=== PATIENT | male | born 1935 | race Caucasian/White ===

== ENCOUNTER 2019-04-28 17:57 | Inpatient (IN) ==
[2019-04-28] MEDS ORDERED: 0.9 % Sodium Chloride 1,000 ML IVC ONE (18:29)
[2019-04-28 18:56] LABS: Bilirubin,Urine Negative (Negative); Blood,Urine Trace (Negative); Clarity,Urine Turbid (Clear); Color,Urine Yellow (Yellow); Glucose,Urine (UA) 100 mg/dL (Normal); Ketones,Urine Negative (Negative); Leukocyte Esterase,Urine Large (Negative); Nitrite,Urine Negative (Negative); Protein,Urine >=300 mg/dL (Neg-Trace); Specific Gravity,Urine 1.015 (1.010-1.025); Urobilinogen,Urine Normal (Normal)
[2019-04-28 18:57] LABS: Basophils # 0.1 K/mcL (0.0-0.2); Basophils % 0.9 %; Eosinophils # 0.2 K/mcL (0.0-0.6); Eosinophils % 2.5 %; Hematocrit 34.2 % (37.5-50.1); Hemoglobin 10.4 g/dL (12.9-16.9); Immature Granulocytes % 0.7 % (0-4); Lymphocytes # 1.1 K/mcL (0.6-4.6); Lymphocytes % 13.8 %; Mean Corpuscular HGB Conc 30.4 g/dL (31.6-35.5); Mean Corpuscular Hemoglobin 23.6 pg (28.0-33.3); Mean Corpuscular Volume 77.6 fL (83.0-100.0); Mean Platelet Volume 9.3 fL (9.4-12.4); Monocytes # 0.7 K/mcL (0.0-1.3); Monocytes % 8.1 %; Platelet Count 409 K/mcL (140-400); Red Blood Count 4.41 M/mcL (4.19-5.50); Red Cell Distribution Width 20.1 % (11.5-14.5); White Blood Count 8.1 K/mcL (4.3-11.1)
[2019-04-28 18:58] LABS: Bacteria,Urine Few per hpf (None-Few); Squamous Epithelial Cell,Urine Many per lpf (None-Few); WBC,Urine TNTC per hpf (0-3)
[2019-04-28 19:06] LABS: Amphetamine Screen,Urine Negative ng/mL (Cutoff=1000); Barbiturate Screen,Urine Negative ng/mL (Cutoff=200); Benzodiazepines Screen,Urine Negative ng/mL (Cutoff=200); Cannabinoid Screen,Urine Negative ng/mL (Cutoff = 50); Cocaine Screen,Urine Negative ng/mL (Cutoff= 300); Opiate Screen,Urine Negative ng/mL (Cutoff=300); Phencyclidine Screen,Urine Negative ng/mL (Cutoff=25)
[2019-04-28 19:16] LABS: INR 6.5; Prothrombin Time 74.2 Seconds (9.4-12.1); Troponin I 0.04 ng/mL (< 0.04)
[2019-04-28 19:27] LABS: Alanine Aminotransferase 17 Units/L (7-52); Albumin 2.6 g/dL (3.5-5.7); Albumin/Globulin Ratio 0.8 (1.1-2.2); Alkaline Phosphatase 121 Units/L (34-104); Aspartate Amino Transferase 26 Units/L (13-39); BUN/Creatinine Ratio 19 (6-26); Bilirubin,Direct 0.1 mg/dL (0.0-0.2); Bilirubin,Indirect 0.3 mg/dL (0.0-1.0); Bilirubin,Total 0.4 mg/dL (0.3-1.0); Blood Urea Nitrogen 31 mg/dL (8-23); Carbon Dioxide 23 mEq/L (23-29); Chloride 105 mEq/L (98-107); Creatine Kinase 116 Units/L (30-223); Ethanol < 10 mg/dL (Less than 10); Globulin 3.3 g/dL (2.4-3.5); Glucose 195 mg/dL (70-105); Osmolality,Calculated 300 (280-300); Potassium 3.6 mEq/L (3.5-5.1); Sodium 139 mEq/L (136-145); Thyroid Stimulating Hormone 4.205 mcIU/mL (0.340-5.600); Total Protein 5.9 g/dL (6.4-8.9); eGFR For African Americans 51 (> 60); eGFR For Non-African Americans 42 (> 60)
[2019-04-28] MEDS ORDERED: cefTRIAXone 1,000 MG in 0.9 % Sodium Chloride Mini Bag 100 ML IVPB ONE (21:21)
[2019-04-28] MEDS ORDERED: Water for inj. (sterile) 10 ML ONE (21:34)
[2019-04-29] MEDS ORDERED: Naloxone 0.4 MG/ML INJ IVP PRN (00:57)
[2019-04-29 02:48] LABS: Basophils # 0.1 K/mcL (0.0-0.2); Basophils % 0.7 %; Eosinophils # 0.2 K/mcL (0.0-0.6); Eosinophils % 2.4 %; Hematocrit 33.1 % (37.5-50.1); Hemoglobin 9.9 g/dL (12.9-16.9); Immature Granulocytes % 0.6 % (0-4); Lymphocytes # 1.5 K/mcL (0.6-4.6); Lymphocytes % 17.7 %; Mean Corpuscular HGB Conc 29.9 g/dL (31.6-35.5); Mean Corpuscular Hemoglobin 23.5 pg (28.0-33.3); Mean Corpuscular Volume 78.6 fL (83.0-100.0); Mean Platelet Volume 9.6 fL (9.4-12.4); Monocytes # 0.6 K/mcL (0.0-1.3); Monocytes % 7.5 %; Platelet Count 386 K/mcL (140-400); Red Blood Count 4.21 M/mcL (4.19-5.50); Red Cell Distribution Width 20.5 % (11.5-14.5); Segmented Neutrophils % 71.1 %; White Blood Count 8.4 K/mcL (4.3-11.1)
[2019-04-29 02:50] LABS: Immature Reticulocyte % 21.2 % (11.0-38.0); Retculocyte # 0.09 M/mcL (0.05-0.10); Reticulocyte % 2.3 % (1.6-2.8)
[2019-04-29 02:54] LABS: INR 6.6; Prothrombin Time 75.5 Seconds (9.4-12.1)
[2019-04-29 03:09] LABS: % Iron Saturation 15 % (20-55); Albumin 2.5 g/dL (3.5-5.7); Albumin/Globulin Ratio 0.8 (1.1-2.2); Bilirubin,Total 0.3 mg/dL (0.3-1.0); Calcium 8.1 mg/dL (8.6-10.3); Globulin 3.3 g/dL (2.4-3.5); Iron 21 mcg/dL (65-175); Magnesium 1.7 mg/dL (1.6-2.6); Phosphorous 3.1 mg/dL (2.7-4.5); Potassium 3.3 mEq/L (3.5-5.1); Total Protein 5.8 g/dL (6.4-8.9); Transferrin 103 mg/dL (203-362)
[2019-04-29 03:27] LABS: Ferritin 362 ng/mL (20-250)
[2019-04-29 03:33] LABS: Folate 14.9 ng/mL (3.0-16.0)
[2019-04-29] MEDS: hydrALAZINE 25 MG TABLET PO SCH ×3 (10:23→20:45)
[2019-04-29] MEDS: cefTRIAXone 1,000 MG in Water for inj. (sterile) 10 ML IVP SCH (10:23)
[2019-04-29] MEDS ORDERED: Dextrose Gel 15 GM/37.5 ML TUBE PO PRN ×2 (10:24)
[2019-04-29] MEDS ORDERED: D5% in Water 1,000 ML IVC PRN (10:24)
[2019-04-29] MEDS: Isosorbide MONOnitrate (24 HR) 60 MG TAB.ER.24H PO SCH (10:24)
[2019-04-29] MEDS ORDERED: *HR* Dextrose 50 % in Water (Syg) 50 ML SYRINGE IVP PRN (10:24)
[2019-04-29 10:53] LABS: Bilirubin,Urine Negative (Negative); Blood,Urine Trace (Negative); Clarity,Urine Cloudy (Clear); Color,Urine Yellow (Yellow); Glucose,Urine (UA) Normal (Normal); Ketones,Urine Negative (Negative); Leukocyte Esterase,Urine Moderate (Negative); Nitrite,Urine Negative (Negative); PH,Urine 6.5 pH Units (5.0-8.0); Protein,Urine >=300 mg/dL (Neg-Trace); Specific Gravity,Urine 1.016 (1.010-1.025); Urobilinogen,Urine Normal (Normal)
[2019-04-29 10:55] LABS: Bacteria,Urine None Seen per hpf (None-Few); Hyaline Casts,Urine None Seen per lpf (None-Few); Squamous Epithelial Cell,Urine Many per lpf (None-Few); WBC,Urine TNTC per hpf (0-3)
[2019-04-29 11:11] LABS: RBC,Urine 0-3 per hpf (0-3)
[2019-04-29 11:16] LABS: Protein/Creatinine Ratio,Urine 7.78 mg/mg (0.00-0.20)
[2019-04-29] MEDS: Insulin LISPRO 300 UNITS/3 ML VIAL SQ SCH ×3 (11:58→20:40)
[2019-04-29] MEDS: Ringers Solution, Lactated 1,000 ML IVC SCH ×2 (12:10→20:46)
[2019-04-30 08:09] LABS: Estimated Average Glucose 194 mg/dl
[2019-04-30] MEDS: Insulin LISPRO 300 UNITS/3 ML VIAL SQ SCH ×4 (09:28→20:49)
[2019-04-30] MEDS: Isosorbide MONOnitrate (24 HR) 60 MG TAB.ER.24H PO SCH (09:29)
[2019-04-30] MEDS: hydrALAZINE 25 MG TABLET PO SCH ×3 (09:29→19:47)
[2019-04-30] MEDS: Ringers Solution, Lactated 1,000 ML IVC SCH (09:30)
[2019-04-30] MEDS: cefTRIAXone 1,000 MG in Water for inj. (sterile) 10 ML IVP SCH (09:30)
[2019-04-30 10:49] LABS: INR 8.2; Prothrombin Time 93.6 Seconds (9.4-12.1)
[2019-04-30 11:01] LABS: Calcium 8.4 mg/dL (8.6-10.3); Potassium 4.2 mEq/L (3.5-5.1)
[2019-04-30 16:53] LABS: Bilirubin,Urine Small (Negative); Blood,Urine Negative (Negative); Clarity,Urine Cloudy (Clear); Color,Urine Dark Yellow (Yellow); Glucose,Urine (UA) 100 mg/dL (Normal); Ketones,Urine Negative (Negative); Leukocyte Esterase,Urine Trace (Negative); Nitrite,Urine Negative (Negative); Protein,Urine >=300 mg/dL (Neg-Trace); Specific Gravity,Urine 1.021 (1.010-1.025); Urobilinogen,Urine Normal (Normal)
[2019-04-30 17:07] LABS: Squamous Epithelial Cell,Urine Few per lpf (None-Few)
[2019-04-30 17:08] LABS: Granular Casts,Urine Few per lpf (None Seen); RBC,Urine 0-3 per hpf (0-3)
[2019-04-30 17:09] LABS: Bacteria,Urine Few per hpf (None-Few)
[2019-04-30] MEDS: Ipratropium/Albuterol Neb 3 ML IH PRN (20:12)
[2019-05-01 04:51] LABS: Basophils # 0.1 K/mcL (0.0-0.2); Basophils % 0.7 %; Eosinophils # 0.1 K/mcL (0.0-0.6); Eosinophils % 1.1 %; Hematocrit 35.2 % (37.5-50.1); Hemoglobin 10.9 g/dL (12.9-16.9); Immature Granulocytes % 0.7 % (0-4); Lymphocytes # 1.1 K/mcL (0.6-4.6); Lymphocytes % 11.8 %; Mean Corpuscular Hemoglobin 23.5 pg (28.0-33.3); Mean Platelet Volume 9.1 fL (9.4-12.4); Monocytes # 0.5 K/mcL (0.0-1.3); Monocytes % 5.2 %; Neutrophils # 7.7 K/mcL (1.6-8.9); Platelet Count 353 K/mcL (140-400); Red Blood Count 4.63 M/mcL (4.19-5.50); Red Cell Distribution Width 20.7 % (11.5-14.5); Segmented Neutrophils % 80.5 %; White Blood Count 9.6 K/mcL (4.3-11.1)
[2019-05-01 04:56] LABS: INR 7.1; Prothrombin Time 81.1 Seconds (9.4-12.1)
[2019-05-01 05:03] LABS: Calcium 8.6 mg/dL (8.6-10.3); Potassium 3.7 mEq/L (3.5-5.1)
[2019-05-01] MEDS: Insulin LISPRO 300 UNITS/3 ML VIAL SQ SCH ×4 (07:42→21:11)
[2019-05-01] MEDS: Ipratropium/Albuterol Neb 3 ML IH PRN (07:59)
[2019-05-01] MEDS: amLODIPine 5 MG TABLET PO SCH (08:23)
[2019-05-01] MEDS: hydrALAZINE 25 MG TABLET PO SCH ×3 (08:23→21:12)
[2019-05-01] MEDS: Isosorbide MONOnitrate (24 HR) 60 MG TAB.ER.24H PO SCH (08:23)
[2019-05-01] MEDS ORDERED: *HR* Metoprolol 5 MG/5 ML VIAL IVP ONE (23:48)
[2019-05-02 04:41] LABS: INR 4.4; Prothrombin Time 49.9 Seconds (9.4-12.1)
[2019-05-02] MEDS: Isosorbide MONOnitrate (24 HR) 60 MG TAB.ER.24H PO SCH (09:52)
[2019-05-02] MEDS: amLODIPine 5 MG TABLET PO SCH (09:52)
[2019-05-02] MEDS: hydrALAZINE 25 MG TABLET PO SCH ×3 (09:54→21:17)
[2019-05-02] MEDS: Insulin LISPRO 300 UNITS/3 ML VIAL SQ SCH ×4 (09:54→21:16)
[2019-05-03 08:51] LABS: INR 2.2; Prothrombin Time 24.7 Seconds (9.4-12.1)
[2019-05-03] MEDS ORDERED: hydrALAZINE 25 MG TABLET PO SCH (09:00)
[2019-05-03] MEDS: Isosorbide MONOnitrate (24 HR) 60 MG TAB.ER.24H PO SCH (09:23)
[2019-05-03] MEDS: amLODIPine 5 MG TABLET PO SCH (09:23)
[2019-05-03] MEDS: Insulin LISPRO 300 UNITS/3 ML VIAL SQ SCH ×2 (09:24→12:26)
[2019-05-03 11:32] VITALS: BP 124/72
[2019-05-03] MEDS ORDERED: Nitrofurantoin (BID) 100 MG CAPSULE PO SCH (17:00)
[2019-05-03] MEDS ORDERED: Warfarin perPT PO PRN (18:00)
[2019-05-03] MEDS ORDERED: *HR* Warfarin 2 MG TABLET PO ONE (18:00)
== END 2019-05-03 17:30 | DRG 312 ==
LOC: 3ANU 17:57 → EMEROOARM 17:57 → SUATTDRO 22:43 → 3ANU 23:06 → SUATTDRO 04-30 15:57
PROVIDERS: ADMIT Family Medicine; ATTEND Student in an Organized Health Care Education/Training Program

== ENCOUNTER 2020-05-12 12:49 | Observation (INO) ==
[2020-05-12] MEDS ORDERED: Isovue-370 500 ML BOTTLE IVP ONE (13:35)
[2020-05-12 14:12] LABS: Basophils # 0.1 K/mcL (0.0-0.2); Eosinophils # 0.2 K/mcL (0.0-0.6); Eosinophils % 2.6 %; Hematocrit 35.9 % (37.5-50.1); Hemoglobin 11.8 g/dL (12.9-16.9); Immature Granulocytes % 0.7 % (0-4); Lymphocytes # 1.5 K/mcL (0.6-4.6); Lymphocytes % 17.5 %; Mean Corpuscular HGB Conc 32.9 g/dL (31.6-35.5); Mean Corpuscular Hemoglobin 28.9 pg (28.0-33.3); Mean Corpuscular Volume 87.8 fL (83.0-100.0); Monocytes # 0.7 K/mcL (0.0-1.3); Neutrophils # 5.9 K/mcL (1.6-8.9); Platelet Count 239 K/mcL (140-400); Red Blood Count 4.09 M/mcL (4.19-5.50); Red Cell Distribution Width 16.9 % (11.5-14.5); Segmented Neutrophils % 70.2 %; White Blood Count 8.4 K/mcL (4.3-11.1)
[2020-05-12 14:16] LABS: INR 4.1
[2020-05-12 14:19] LABS: Activated Partial Thrombo Time 47.1 Seconds (26.0-36.0)
[2020-05-12 14:42] LABS: Albumin 3.1 g/dL (3.5-5.7); Albumin/Globulin Ratio 1.3 (1.1-2.2); Bilirubin,Indirect 0.3 mg/dL (0.0-1.0); Bilirubin,Total 0.3 mg/dL (0.3-1.0); Globulin 2.4 g/dL (2.4-3.5); Potassium 3.8 mEq/L (3.5-5.1); Total Protein 5.5 g/dL (6.4-8.9); Troponin I 0.05 ng/mL (< 0.04)
[2020-05-12 14:46] LABS: Bacteria,Urine Few per hpf (None-Few); Bilirubin,Urine Negative (Negative); Blood,Urine Small (Negative); Clarity,Urine Turbid (Clear); Color,Urine Light-Yellow (Yellow); Glucose,Urine (UA) 200 mg/dL (Normal); Ketones,Urine Negative (Negative); Leukocyte Esterase,Urine Moderate (Negative); Mucus,Urine Few per lpf (None-Few); Nitrite,Urine Negative (Negative); Protein,Urine >=300 mg/dL (Neg-Trace); Specific Gravity,Urine 1.016 (1.010-1.025); Squamous Epithelial Cell,Urine Few per hpf (None-Few); Urobilinogen,Urine Normal (Normal); WBC,Urine TNTC per hpf (0-3)
[2020-05-12 14:48] LABS: Amphetamine Screen,Urine Negative ng/mL (Cutoff=1000); Barbiturate Screen,Urine Negative ng/mL (Cutoff=200); Benzodiazepines Screen,Urine Negative ng/mL (Cutoff=200); Cannabinoid Screen,Urine Negative ng/mL (Cutoff = 50); Cocaine Screen,Urine Negative ng/mL (Cutoff= 300); Opiate Screen,Urine Negative ng/mL (Cutoff=300); Phencyclidine Screen,Urine Negative ng/mL (Cutoff=25)
[2020-05-12] MEDS ORDERED: *HR* LORazepam 2 MG/ML VIAL IVP ONE (16:43)
[2020-05-12 17:11] LABS: Adenovirus Not Detected (Not Detect); Bordetella Pertussis Not Detected (Not Detect); Chlamydophila pneumoniae Not Detected (Not Detect); Coronavirus 229E Not Detected (Not Detect); Coronavirus HKU1 Not Detected (Not Detect); Coronavirus NL63 Not Detected (Not Detect); Coronavirus OC43 Not Detected (Not Detect); Human Metapneumovirus Not Detected (Not Detect); Human Rhinovirus/Enterovirus Not Detected (Not Detect); Influenza A Subtype 2009 H1 Not Detected (Not Detect); Influenza B Not Detected (Not Detect); Mycoplasma pneumoniae Not Detected (Not Detect); Parainfluenza Virus 1 Not Detected (Not Detect); Parainfluenza Virus 2 Not Detected (Not Detect); Parainfluenza Virus 3 Not Detected (Not Detect); Parainfluenza Virus 4 Not Detected (Not Detect); Respiratory Syncytial Virus Not Detected (Not Detect); SARS-CoV-2 Not Detected (Not Detect)
[2020-05-12] MEDS ORDERED: Acetaminophen 325 MG TABLET PO PRN (17:54)
[2020-05-12] MEDS ORDERED: Naloxone 0.4 MG/ML INJ IVP PRN (17:54)
[2020-05-12] MEDS ORDERED: Melatonin 3 MG TABLET PO PRN (18:06)
[2020-05-12] MEDS ORDERED: *HR* Dextrose 50 % in Water (Vial) 50 ML VIAL IVP PRN (18:10)
[2020-05-12] MEDS ORDERED: D5% in Water 1,000 ML IVC PRN (18:10)
[2020-05-12] MEDS ORDERED: Dextrose Gel 15 GM/37.5 ML TUBE PO PRN ×2 (18:10)
[2020-05-12] MEDS: *HR* LORazepam 1 MG TABLET PO SCH (21:21)
[2020-05-12] MEDS: 0.9 % Sodium Chloride 1,000 ML IVC SCH (21:22)
[2020-05-12] MEDS: Insulin DETEMIR 100 UNIT/ML X5UNITS SQ SCH (21:49)
[2020-05-13 00:47] LABS: Basophils # 0.1 K/mcL (0.0-0.2); Basophils % 0.7 %; Eosinophils # 0.3 K/mcL (0.0-0.6); Eosinophils % 2.7 %; Hematocrit 36.5 % (37.5-50.1); Hemoglobin 11.5 g/dL (12.9-16.9); Immature Granulocytes % 0.5 % (0-4); Lymphocytes # 1.8 K/mcL (0.6-4.6); Lymphocytes % 18.6 %; Mean Corpuscular HGB Conc 31.5 g/dL (31.6-35.5); Mean Corpuscular Hemoglobin 27.9 pg (28.0-33.3); Mean Corpuscular Volume 88.6 fL (83.0-100.0); Mean Platelet Volume 10.5 fL (9.4-12.4); Monocytes # 0.7 K/mcL (0.0-1.3); Monocytes % 7.3 %; Neutrophils # 6.8 K/mcL (1.6-8.9); Platelet Count 183 K/mcL (140-400); Red Blood Count 4.12 M/mcL (4.19-5.50); Red Cell Distribution Width 16.6 % (11.5-14.5); Segmented Neutrophils % 70.2 %; White Blood Count 9.6 K/mcL (4.3-11.1)
[2020-05-13 01:06] LABS: Calcium 7.9 mg/dL (8.6-10.3); Potassium 3.5 mEq/L (3.5-5.1)
[2020-05-13 01:13] LABS: INR 3.5; Prothrombin Time 38.9 Seconds (9.4-12.1)
[2020-05-13] MEDS: Insulin LISPRO 300 UNITS/3 ML VIAL SQ SCH ×3 (07:44→17:36)
[2020-05-13] MEDS: Finasteride 5 MG TABLET PO SCH (07:47)
[2020-05-13] MEDS: Isosorbide MONOnitrate (24 HR) 60 MG TAB.ER.24H PO SCH (07:47)
[2020-05-13] MEDS: Metoprolol XL (24 HR) Succ 25 MG TAB.ER.24H PO SCH (07:47)
[2020-05-13] MEDS: allopurinoL 100 MG TABLET PO SCH (07:48)
[2020-05-13] MEDS: amLODIPine 5 MG TABLET PO SCH (07:48)
[2020-05-13] MEDS ORDERED: Ondansetron 4 MG/2 ML VIAL IVP ONE (08:02)
[2020-05-13] MEDS ORDERED: *HR* Glimepiride 4 MG TABLET PO SCH (09:00)
[2020-05-13] MEDS: 0.9 % Sodium Chloride 1,000 ML IVC SCH (11:31)
[2020-05-13] MEDS ORDERED: *HR* LORazepam 0.5 MG TABLET PO PRN (16:22)
[2020-05-13] MEDS ORDERED: Warfarin perPT PO PRN (18:00)
[2020-05-13] MEDS: hydrALAZINE 25 MG TABLET PO SCH (20:05)
[2020-05-13] MEDS: *HR* LORazepam 1 MG TABLET PO SCH (20:05)
[2020-05-13] MEDS: Insulin DETEMIR 100 UNIT/ML X5UNITS SQ SCH (22:51)
[2020-05-13] MEDS: Ketorolac OPTH Soln 5 ML BOTTLE RIGHT EYE SCH (23:57)
[2020-05-14] MEDS: Gatifloxacin OPTH Drops 2.5 mL BOTTLE RIGHT EYE SCH ×2 (00:15→09:02)
[2020-05-14 06:34] LABS: INR 2.3; Prothrombin Time 26.5 Seconds (9.4-12.1)
[2020-05-14] MEDS: hydrALAZINE 25 MG TABLET PO SCH (08:59)
[2020-05-14] MEDS: amLODIPine 5 MG TABLET PO SCH (08:59)
[2020-05-14] MEDS: Isosorbide MONOnitrate (24 HR) 60 MG TAB.ER.24H PO SCH (09:00)
[2020-05-14] MEDS ORDERED: *HR* LORazepam 0.5 MG TABLET PO SCH (09:00)
[2020-05-14] MEDS ORDERED: polyethylene glycoL 3350 17 GM POWD.PACK PO SCH (09:00)
[2020-05-14] MEDS: Finasteride 5 MG TABLET PO SCH (09:00)
[2020-05-14] MEDS: Metoprolol XL (24 HR) Succ 25 MG TAB.ER.24H PO SCH (09:00)
[2020-05-14] MEDS ORDERED: Furosemide 40 MG TABLET PO SCH (09:00)
[2020-05-14] MEDS: allopurinoL 100 MG TABLET PO SCH (09:00)
[2020-05-14] MEDS: Insulin LISPRO 300 UNITS/3 ML VIAL SQ SCH (09:01)
[2020-05-14] MEDS: Ketorolac OPTH Soln 5 ML BOTTLE RIGHT EYE SCH (09:01)
[2020-05-14 11:32] VITALS: BP 147/77
[2020-05-14 11:41] LABS: Adenovirus Not Detected (Not Detect); Coronavirus 229E Not Detected (Not Detect); Coronavirus HKU1 Not Detected (Not Detect); Coronavirus NL63 Not Detected (Not Detect); Coronavirus OC43 Not Detected (Not Detect); Human Metapneumovirus Not Detected (Not Detect); Human Rhinovirus/Enterovirus Not Detected (Not Detect); Influenza A Subtype 2009 H1 Not Detected (Not Detect); Influenza B Not Detected (Not Detect); Parainfluenza Virus 1 Not Detected (Not Detect); Parainfluenza Virus 2 Not Detected (Not Detect); SARS-CoV-2 Not Detected (Not Detect)
[2020-05-14 11:42] LABS: Bordetella Pertussis Not Detected (Not Detect); Chlamydophila pneumoniae Not Detected (Not Detect); Mycoplasma pneumoniae Not Detected (Not Detect); Parainfluenza Virus 3 Not Detected (Not Detect); Parainfluenza Virus 4 Not Detected (Not Detect); Respiratory Syncytial Virus Not Detected (Not Detect)
[2020-05-14] MEDS ORDERED: *HR* Warfarin 2.5 MG TABLET PO ONE (18:00)
== END 2020-05-14 12:42 ==
LOC: EMEROOARM 12:49 → 2ANU 12:49 → SUATTDRO 17:29 → 2ANU 18:27
PROVIDERS: ADMIT Internal Medicine; ATTEND Internal Medicine

== ENCOUNTER 2020-05-16 20:23 | Inpatient (IN) ==
[2020-05-16] MEDS ORDERED: *HR* LORazepam 2 MG/ML VIAL IM ONE (20:39)
[2020-05-16 21:07] LABS: Amphetamine Screen,Urine Negative ng/mL (Cutoff=1000); Bacteria,Urine Few per hpf (None-Few); Barbiturate Screen,Urine Negative ng/mL (Cutoff=200); Benzodiazepines Screen,Urine Negative ng/mL (Cutoff=200); Bilirubin,Urine Negative (Negative); Blood,Urine Moderate (Negative); Cannabinoid Screen,Urine Negative ng/mL (Cutoff = 50); Clarity,Urine Clear (Clear); Cocaine Screen,Urine Negative ng/mL (Cutoff= 300); Color,Urine Light-Yellow (Yellow); Glucose,Urine (UA) 200 mg/dL (Normal); Ketones,Urine Negative (Negative); Leukocyte Esterase,Urine Negative (Negative); Mucus,Urine Few per lpf (None-Few); Nitrite,Urine Negative (Negative); Opiate Screen,Urine Negative ng/mL (Cutoff=300); PH,Urine 6.5 pH Units (5.0-8.0); Phencyclidine Screen,Urine Negative ng/mL (Cutoff=25); Protein,Urine >=600 mg/dL (Neg-Trace); RBC,Urine 0-3 per hpf (0-3); Specific Gravity,Urine 1.016 (1.010-1.025); Squamous Epithelial Cell,Urine Few per hpf (None-Few); Urobilinogen,Urine Normal (Normal); WBC,Urine 15-30 per hpf (0-3)
[2020-05-16 21:39] LABS: Basophils # 0.1 K/mcL (0.0-0.2); Basophils % 0.6 %; Eosinophils # 0.3 K/mcL (0.0-0.6); Eosinophils % 2.8 %; Hematocrit 39.4 % (37.5-50.1); Hemoglobin 12.2 g/dL (12.9-16.9); Immature Granulocytes % 0.5 % (0-4); Lymphocytes # 1.6 K/mcL (0.6-4.6); Lymphocytes % 14.1 %; Mean Corpuscular Hemoglobin 27.7 pg (28.0-33.3); Mean Corpuscular Volume 89.5 fL (83.0-100.0); Mean Platelet Volume 10.3 fL (9.4-12.4); Monocytes # 1.1 K/mcL (0.0-1.3); Monocytes % 9.5 %; Neutrophils # 8.4 K/mcL (1.6-8.9); Platelet Count 202 K/mcL (140-400); Red Cell Distribution Width 16.5 % (11.5-14.5); Segmented Neutrophils % 72.5 %; White Blood Count 11.6 K/mcL (4.3-11.1)
[2020-05-16 21:58] LABS: Acetaminophen < 10 mcg/mL (10-20); BUN/Creatinine Ratio 14 (6-26); Blood Urea Nitrogen 41 mg/dL (8-23); Calcium 8.3 mg/dL (8.6-10.3); Carbon Dioxide 26 mEq/L (23-29); Chloride 109 mEq/L (98-107); Ethanol < 10 mg/dL (Less than 10); Glucose 104 mg/dL (70-105); Osmolality,Calculated 306 (280-300); Potassium 3.7 mEq/L (3.5-5.1); Salicylate < 2.5 mg/dL (15.0-30.0); Sodium 143 mEq/L (136-145); eGFR For African Americans 25 (> 60); eGFR For Non-African Americans 20 (> 60)
[2020-05-16] MEDS ORDERED: levoFLOXacin 750 MG/150 ML 750 MG/150 ML BAG IVPB SCH (23:15)
[2020-05-16 23:21] LABS: Alanine Aminotransferase 19 Units/L (7-52); Albumin 3.3 g/dL (3.5-5.7); Albumin/Globulin Ratio 1.3 (1.1-2.2); Alkaline Phosphatase 129 Units/L (34-104); Aspartate Amino Transferase 31 Units/L (13-39); Bilirubin,Direct 0.1 mg/dL (0.0-0.2); Bilirubin,Indirect 0.3 mg/dL (0.0-1.0); Bilirubin,Total 0.4 mg/dL (0.3-1.0); Globulin 2.5 g/dL (2.4-3.5); Total Protein 5.8 g/dL (6.4-8.9)
[2020-05-16] MEDS ORDERED: 0.9 % Sodium Chloride 1,000 ML IVC ONE (23:23)
[2020-05-16] MEDS ORDERED: *HR* Labetalol 20 MG/4 ML SYRINGE IVP ONE (23:25)
[2020-05-16] MEDS ORDERED: *HR* LORazepam 2 MG/ML VIAL ONE (23:30)
[2020-05-16] MEDS ORDERED: *HR* LORazepam 2 MG/ML VIAL IVP ONE (23:32)
[2020-05-17] MEDS ORDERED: Melatonin 3 MG TABLET PO PRN (00:57)
[2020-05-17] MEDS ORDERED: *HR* LORazepam 0.5 MG TABLET PO PRN (00:57)
[2020-05-17] MEDS ORDERED: D5% in Water 1,000 ML IVC PRN (01:00)
[2020-05-17] MEDS ORDERED: Dextrose Gel 15 GM/37.5 ML TUBE PO PRN ×2 (01:00)
[2020-05-17 01:41] LABS: Creatine Kinase 508 Units/L (30-223)
[2020-05-17] MEDS ORDERED: Ondansetron 4 MG/2 ML VIAL IVP PRN (04:01)
[2020-05-17] MEDS ORDERED: Albuterol 2.5 MG/3 ML NEBULIZER IH ONE (04:54)
[2020-05-17] MEDS ORDERED: Albuterol 2.5 MG/3 ML NEBULIZER ONE (04:58)
[2020-05-17 05:21] LABS: ABG Base Excess -2 mEq/L (-2 to 3); ABG HCO3 26 mEq/L (21-27); ABG Oxygen Saturation 99 % (95-98); ABG PCO2 54 mmHg (35-45); ABG PH 7.29 pH Units (7.32-7.45); ABG PO2 161 mmHg (85-104); ABG TCO2 27 mEq/L (20-26); Blood Gas Modality BiLevel; Blood Gas VT 500 cc
[2020-05-17] MEDS: QUEtiapine Fumarate 25 MG TABLET PO SCH ×2 (07:32→20:42)
[2020-05-17] MEDS: *HR* LORazepam 1 MG TABLET PO SCH ×3 (07:32→20:42)
[2020-05-17] MEDS ORDERED: Vancomycin 1,500 MG/265 ML IV.SOLN IVPB ONE (07:50)
[2020-05-17 09:51] LABS: Hematocrit 33.9 % (37.5-50.1); Mean Corpuscular HGB Conc 31.3 g/dL (31.6-35.5); Mean Corpuscular Hemoglobin 28.6 pg (28.0-33.3); Mean Corpuscular Volume 91.6 fL (83.0-100.0); Mean Platelet Volume 10.8 fL (9.4-12.4); Platelet Count 168 K/mcL (140-400); Red Cell Distribution Width 16.7 % (11.5-14.5); White Blood Count 7.8 K/mcL (4.3-11.1)
[2020-05-17 09:53] LABS: Hemoglobin 10.6 g/dL (12.9-16.9)
[2020-05-17 10:09] LABS: Magnesium 2.1 mg/dL (1.6-2.6); Phosphorous 4.4 mg/dL (2.7-4.5); Potassium 3.2 mEq/L (3.5-5.1)
[2020-05-17] MEDS: *HR* LORazepam 0.5 MG TABLET PO SCH (10:58)
[2020-05-17] MEDS: hydrALAZINE 25 MG TABLET PO SCH ×3 (10:59→20:29)
[2020-05-17] MEDS: Isosorbide MONOnitrate (24 HR) 60 MG TAB.ER.24H PO SCH (11:00)
[2020-05-17] MEDS: Insulin DETEMIR 100 UNIT/ML X5UNITS SQ SCH (11:01)
[2020-05-17] MEDS: Furosemide 40 MG TABLET PO SCH (11:01)
[2020-05-17] MEDS: amLODIPine 5 MG TABLET PO SCH (11:02)
[2020-05-17] MEDS: Finasteride 5 MG TABLET PO SCH (11:03)
[2020-05-17] MEDS: Metoprolol XL (24 HR) Succ 25 MG TAB.ER.24H PO SCH (11:04)
[2020-05-17] MEDS: Nitroglycerin 0.2 MG PATCH.TD24 TD SCH (16:48)
[2020-05-17] MEDS: *HR* Dextrose 50 % in Water (Vial) 50 ML VIAL IVP PRN (20:18)
[2020-05-17] MEDS: *HR* Labetalol 20 MG/4 ML SYRINGE IVP PRN (21:29)
[2020-05-18] MEDS: *HR* Labetalol 20 MG/4 ML SYRINGE IVP PRN (00:46)
[2020-05-18 06:07] LABS: Hematocrit 41.1 % (37.5-50.1); Hemoglobin 12.7 g/dL (12.9-16.9); Mean Corpuscular HGB Conc 30.9 g/dL (31.6-35.5); Mean Corpuscular Hemoglobin 27.9 pg (28.0-33.3); Mean Corpuscular Volume 90.1 fL (83.0-100.0); Mean Platelet Volume 10.5 fL (9.4-12.4); Platelet Count 201 K/mcL (140-400); Red Blood Count 4.56 M/mcL (4.19-5.50); White Blood Count 11.5 K/mcL (4.3-11.1)
[2020-05-18 06:28] LABS: Calcium 8.9 mg/dL (8.6-10.3); Magnesium 2.2 mg/dL (1.6-2.6); Potassium 3.7 mEq/L (3.5-5.1)
[2020-05-18] MEDS: hydrALAZINE 25 MG TABLET PO SCH ×3 (08:58→21:50)
[2020-05-18] MEDS: Finasteride 5 MG TABLET PO SCH (08:58)
[2020-05-18] MEDS: *HR* LORazepam 0.5 MG TABLET PO SCH (08:58)
[2020-05-18] MEDS: Isosorbide MONOnitrate (24 HR) 60 MG TAB.ER.24H PO SCH (08:59)
[2020-05-18] MEDS: Nitroglycerin 0.2 MG PATCH.TD24 TD SCH (08:59)
[2020-05-18] MEDS: Metoprolol XL (24 HR) Succ 25 MG TAB.ER.24H PO SCH (08:59)
[2020-05-18] MEDS: amLODIPine 5 MG TABLET PO SCH (08:59)
[2020-05-18] MEDS: Furosemide 40 MG TABLET PO SCH (08:59)
[2020-05-18] MEDS: D5% in 0.45% NACL 1,000 ML IVC SCH (09:00)
[2020-05-18] MEDS ORDERED: Vancomycin 500 MG in 0.9 % Sodium Chloride Mini Bag 100 ML IVPB ONE (11:00)
[2020-05-18] MEDS: Insulin DETEMIR 100 UNIT/ML X5UNITS SQ SCH (12:37)
[2020-05-18] MEDS: *HR* LORazepam 1 MG TABLET PO SCH ×2 (17:30→21:50)
[2020-05-18] MEDS: QUEtiapine Fumarate 25 MG TABLET PO SCH (21:50)
[2020-05-19] MEDS: D5% in 0.45% NACL 1,000 ML IVC SCH ×2 (01:10→13:43)
[2020-05-19 06:30] LABS: Hematocrit 36.8 % (37.5-50.1); Hemoglobin 11.5 g/dL (12.9-16.9); Mean Corpuscular HGB Conc 31.3 g/dL (31.6-35.5); Mean Corpuscular Hemoglobin 28.6 pg (28.0-33.3); Mean Corpuscular Volume 91.5 fL (83.0-100.0); Mean Platelet Volume 10.8 fL (9.4-12.4); Platelet Count 181 K/mcL (140-400); Red Blood Count 4.02 M/mcL (4.19-5.50); Red Cell Distribution Width 16.4 % (11.5-14.5); White Blood Count 9.4 K/mcL (4.3-11.1)
[2020-05-19 06:40] LABS: Calcium 8.3 mg/dL (8.6-10.3); Potassium 3.3 mEq/L (3.5-5.1)
[2020-05-19] MEDS: Nitroglycerin 0.2 MG PATCH.TD24 TD SCH (09:55)
[2020-05-19] MEDS: Isosorbide MONOnitrate (24 HR) 60 MG TAB.ER.24H PO SCH (09:56)
[2020-05-19] MEDS: Insulin DETEMIR 100 UNIT/ML X5UNITS SQ SCH (09:56)
[2020-05-19] MEDS: Metoprolol XL (24 HR) Succ 25 MG TAB.ER.24H PO SCH (09:57)
[2020-05-19] MEDS: amLODIPine 5 MG TABLET PO SCH (09:57)
[2020-05-19] MEDS: hydrALAZINE 25 MG TABLET PO SCH ×3 (09:57→22:03)
[2020-05-19] MEDS: *HR* LORazepam 0.5 MG TABLET PO SCH (09:57)
[2020-05-19] MEDS: Furosemide 40 MG TABLET PO SCH (09:58)
[2020-05-19] MEDS: Finasteride 5 MG TABLET PO SCH (09:58)
[2020-05-19] MEDS: *HR* Labetalol 20 MG/4 ML SYRINGE IVP PRN (14:05)
[2020-05-19] MEDS: 0.9 % Sodium Chloride 1,000 ML IVC SCH (14:05)
[2020-05-19 16:11] LABS: INR 1.9; Prothrombin Time 21.7 Seconds (9.4-12.1)
[2020-05-19] MEDS ORDERED: Warfarin perPT PO PRN (18:00)
[2020-05-19] MEDS ORDERED: *HR* Warfarin 2 MG TABLET PO ONE (18:00)
[2020-05-19] MEDS ORDERED: Haloperidol Lactate 5 MG/ML VIAL IM PRN (18:48)
[2020-05-19] MEDS: QUEtiapine Fumarate 25 MG TABLET PO SCH (21:08)
[2020-05-19] MEDS: *HR* LORazepam 1 MG TABLET PO SCH (21:09)
[2020-05-19] MEDS: Mirtazapine 15 MG TABLET PO SCH (21:09)
[2020-05-19] MEDS: Gatifloxacin OPTH Drops 2.5 mL BOTTLE RIGHT EYE SCH (21:14)
[2020-05-19] MEDS: Ketorolac OPTH Soln 5 ML BOTTLE RIGHT EYE SCH (21:15)
[2020-05-19] MEDS: Acetaminophen 325 MG TABLET PO PRN (22:15)
[2020-05-20 05:16] LABS: Hematocrit 35.4 % (37.5-50.1); Mean Corpuscular HGB Conc 31.1 g/dL (31.6-35.5); Mean Corpuscular Hemoglobin 28.1 pg (28.0-33.3); Mean Corpuscular Volume 90.3 fL (83.0-100.0); Mean Platelet Volume 10.6 fL (9.4-12.4); Platelet Count 179 K/mcL (140-400); Red Blood Count 3.92 M/mcL (4.19-5.50); Red Cell Distribution Width 16.3 % (11.5-14.5); White Blood Count 7.7 K/mcL (4.3-11.1)
[2020-05-20 05:31] LABS: Calcium 7.9 mg/dL (8.6-10.3); INR 1.7; Potassium 3.5 mEq/L (3.5-5.1); Prothrombin Time 19.3 Seconds (9.4-12.1)
[2020-05-20] MEDS: Nitroglycerin 0.2 MG PATCH.TD24 TD SCH (08:30)
[2020-05-20] MEDS: *HR* LORazepam 1 MG TABLET PO SCH ×2 (08:34→21:40)
[2020-05-20] MEDS: Finasteride 5 MG TABLET PO SCH (08:34)
[2020-05-20] MEDS: Furosemide 40 MG TABLET PO SCH (08:34)
[2020-05-20] MEDS: Isosorbide MONOnitrate (24 HR) 60 MG TAB.ER.24H PO SCH (08:34)
[2020-05-20] MEDS: Metoprolol XL (24 HR) Succ 25 MG TAB.ER.24H PO SCH (08:34)
[2020-05-20] MEDS: hydrALAZINE 25 MG TABLET PO SCH ×3 (08:34→21:49)
[2020-05-20] MEDS: polyethylene glycoL 3350 17 GM POWD.PACK PO SCH (08:35)
[2020-05-20] MEDS: Insulin DETEMIR 100 UNIT/ML X5UNITS SQ SCH (08:35)
[2020-05-20] MEDS: Gatifloxacin OPTH Drops 2.5 mL BOTTLE RIGHT EYE SCH ×2 (08:41→21:41)
[2020-05-20] MEDS: amLODIPine 5 MG TABLET PO SCH (08:41)
[2020-05-20 12:28] LABS: Protein/Creatinine Ratio,Urine 7.14 mg/mg (0.00-0.20)
[2020-05-20] MEDS: Ketorolac OPTH Soln 5 ML BOTTLE RIGHT EYE SCH ×2 (14:16→21:41)
[2020-05-20 14:58] LABS: Uric Acid 6.1 mg/dL (2.3-7.6)
[2020-05-20] MEDS ORDERED: *HR* Warfarin 2.5 MG TABLET PO ONE (18:00)
[2020-05-20] MEDS ORDERED: QUEtiapine Fumarate 25 MG TABLET PO PRN (18:12)
[2020-05-20] MEDS: Acetaminophen 325 MG TABLET PO PRN (19:32)
[2020-05-20] MEDS ORDERED: Levalbuterol Neb 1.25 MG/3 ML IH ONE (21:20)
[2020-05-20] MEDS: 0.9 % Sodium Chloride 1,000 ML IVC SCH (21:29)
[2020-05-20] MEDS: QUEtiapine Fumarate 25 MG TABLET PO SCH (21:38)
[2020-05-20] MEDS: Mirtazapine 15 MG TABLET PO SCH (21:38)
[2020-05-20] MEDS ORDERED: Acetaminophen IV 500 MG/50 ML BAG IVPB ONE (22:50)
[2020-05-20 23:30] LABS: Adenovirus Not Detected (Not Detect); Bordetella Pertussis Not Detected (Not Detect); Chlamydophila pneumoniae Not Detected (Not Detect); Coronavirus 229E Not Detected (Not Detect); Coronavirus HKU1 Not Detected (Not Detect); Coronavirus NL63 Not Detected (Not Detect); Coronavirus OC43 Not Detected (Not Detect); Human Metapneumovirus Not Detected (Not Detect); Human Rhinovirus/Enterovirus Not Detected (Not Detect); Influenza A Subtype 2009 H1 Not Detected (Not Detect); Influenza B Not Detected (Not Detect); Mycoplasma pneumoniae Not Detected (Not Detect); Parainfluenza Virus 1 Not Detected (Not Detect); Parainfluenza Virus 2 Not Detected (Not Detect); Parainfluenza Virus 3 Not Detected (Not Detect); Parainfluenza Virus 4 Not Detected (Not Detect); Respiratory Syncytial Virus Not Detected (Not Detect); SARS-CoV-2 Not Detected (Not Detect)
[2020-05-21 05:54] LABS: Hematocrit 38.1 % (37.5-50.1); Hemoglobin 11.8 g/dL (12.9-16.9); INR 1.9; Mean Corpuscular Hemoglobin 27.9 pg (28.0-33.3); Mean Corpuscular Volume 90.1 fL (83.0-100.0); Mean Platelet Volume 10.6 fL (9.4-12.4); Platelet Count 215 K/mcL (140-400); Prothrombin Time 21.9 Seconds (9.4-12.1); Red Blood Count 4.23 M/mcL (4.19-5.50); Red Cell Distribution Width 16.1 % (11.5-14.5)
[2020-05-21 06:15] LABS: Calcium 8.3 mg/dL (8.6-10.3); Potassium 3.4 mEq/L (3.5-5.1)
[2020-05-21] MEDS: 0.9 % Sodium Chloride 1,000 ML IVC SCH ×2 (07:22→07:23)
[2020-05-21] MEDS: Ketorolac OPTH Soln 5 ML BOTTLE RIGHT EYE SCH ×2 (08:23→22:15)
[2020-05-21] MEDS: Metoprolol XL (24 HR) Succ 25 MG TAB.ER.24H PO SCH (08:24)
[2020-05-21] MEDS: polyethylene glycoL 3350 17 GM POWD.PACK PO SCH (08:24)
[2020-05-21] MEDS: hydrALAZINE 25 MG TABLET PO SCH ×3 (08:24→22:13)
[2020-05-21] MEDS: amLODIPine 5 MG TABLET PO SCH (08:24)
[2020-05-21] MEDS: *HR* LORazepam 1 MG TABLET PO SCH ×2 (08:25→22:13)
[2020-05-21] MEDS: Isosorbide MONOnitrate (24 HR) 60 MG TAB.ER.24H PO SCH (08:25)
[2020-05-21] MEDS: Nitroglycerin 0.2 MG PATCH.TD24 TD SCH (08:25)
[2020-05-21] MEDS: Furosemide 40 MG TABLET PO SCH (08:25)
[2020-05-21] MEDS: Finasteride 5 MG TABLET PO SCH (08:26)
[2020-05-21] MEDS: Gatifloxacin OPTH Drops 2.5 mL BOTTLE RIGHT EYE SCH ×2 (08:27→22:15)
[2020-05-21] MEDS: Insulin DETEMIR 100 UNIT/ML X5UNITS SQ SCH (08:32)
[2020-05-21] MEDS ORDERED: levoFLOXacin 750 MG/150 ML 750 MG/150 ML BAG IVPB SCH (09:00)
[2020-05-21] MEDS ORDERED: *HR* Warfarin 2.5 MG TABLET PO ONE (18:00)
[2020-05-21] MEDS: *HR* Dextrose 50 % in Water (Vial) 50 ML VIAL IVP PRN (20:18)
[2020-05-21] MEDS: Ipratropium/Albuterol Neb 3 ML IH SCH (21:49)
[2020-05-21] MEDS: Mirtazapine 15 MG TABLET PO SCH (22:11)
[2020-05-21] MEDS: QUEtiapine Fumarate 25 MG TABLET PO SCH (22:14)
[2020-05-22 01:54] LABS: Basophils % 0.5 %; Eosinophils # 0.3 K/mcL (0.0-0.6); Eosinophils % 4.2 %; Hematocrit 34.1 % (37.5-50.1); Hemoglobin 10.5 g/dL (12.9-16.9); Immature Granulocytes % 0.3 % (0-4); Lymphocytes % 14.1 %; Mean Corpuscular HGB Conc 30.8 g/dL (31.6-35.5); Mean Corpuscular Hemoglobin 27.9 pg (28.0-33.3); Mean Corpuscular Volume 90.5 fL (83.0-100.0); Mean Platelet Volume 10.5 fL (9.4-12.4); Monocytes # 0.6 K/mcL (0.0-1.3); Monocytes % 7.6 %; Neutrophils # 5.4 K/mcL (1.6-8.9); Platelet Count 179 K/mcL (140-400); Red Blood Count 3.77 M/mcL (4.19-5.50); Red Cell Distribution Width 16.1 % (11.5-14.5); Segmented Neutrophils % 73.3 %
[2020-05-22 01:56] LABS: White Blood Count 7.4 K/mcL (4.3-11.1)
[2020-05-22 02:04] LABS: INR 2.4; Prothrombin Time 27.5 Seconds (9.4-12.1)
[2020-05-22 02:07] LABS: Albumin 2.6 g/dL (3.5-5.7); Bilirubin,Total 0.4 mg/dL (0.3-1.0); Calcium 7.9 mg/dL (8.6-10.3); Globulin 2.5 g/dL (2.4-3.5); Magnesium 1.9 mg/dL (1.6-2.6); Phosphorous 4.8 mg/dL (2.7-4.5); Potassium 3.4 mEq/L (3.5-5.1); Total Protein 5.1 g/dL (6.4-8.9)
[2020-05-22] MEDS: Ipratropium/Albuterol Neb 3 ML IH SCH ×4 (03:55→22:26)
[2020-05-22] MEDS: Multivit/Ca/Min/Fe/FA 1 TAB TABLET PO SCH (09:34)
[2020-05-22] MEDS: Finasteride 5 MG TABLET PO SCH (09:35)
[2020-05-22] MEDS: hydrALAZINE 25 MG TABLET PO SCH ×3 (09:35→20:04)
[2020-05-22] MEDS: Furosemide 40 MG TABLET PO SCH (09:35)
[2020-05-22] MEDS: Metoprolol XL (24 HR) Succ 25 MG TAB.ER.24H PO SCH (09:35)
[2020-05-22] MEDS: Isosorbide MONOnitrate (24 HR) 60 MG TAB.ER.24H PO SCH (09:35)
[2020-05-22] MEDS: polyethylene glycoL 3350 17 GM POWD.PACK PO SCH (09:35)
[2020-05-22] MEDS: Nitroglycerin 0.2 MG PATCH.TD24 TD SCH (09:36)
[2020-05-22] MEDS: amLODIPine 5 MG TABLET PO SCH (09:38)
[2020-05-22] MEDS: Ketorolac OPTH Soln 5 ML BOTTLE RIGHT EYE SCH (09:39)
[2020-05-22] MEDS: Gatifloxacin OPTH Drops 2.5 mL BOTTLE RIGHT EYE SCH ×2 (09:40→20:06)
[2020-05-22] MEDS: *HR* LORazepam 1 MG TABLET PO SCH (11:46)
[2020-05-22] MEDS: Insulin DETEMIR 100 UNIT/ML X5UNITS SQ SCH (12:23)
[2020-05-22 15:58] LABS: ABG Base Excess -3 mEq/L (-2 to 3); ABG HCO3 23 mEq/L (21-27); ABG Oxygen Saturation 96 % (95-98); ABG PCO2 41 mmHg (35-45); ABG PH 7.35 pH Units (7.32-7.45); ABG PO2 83 mmHg (85-104); ABG TCO2 24 mEq/L (20-26)
[2020-05-22] MEDS: Mirtazapine 15 MG TABLET PO SCH (20:04)
[2020-05-22] MEDS: QUEtiapine Fumarate 25 MG TABLET PO SCH (20:06)
[2020-05-22] MEDS: Vancomycin 500 MG in 0.9 % Sodium Chloride Mini Bag 100 ML IVPB SCH (20:15)
[2020-05-22] MEDS ORDERED: *HR* LORazepam 2 MG/ML VIAL IVP PRN (21:34)
[2020-05-23] MEDS: Ipratropium/Albuterol Neb 3 ML IH SCH ×4 (03:43→20:46)
[2020-05-23 04:43] LABS: INR 2.3; Prothrombin Time 25.6 Seconds (9.4-12.1)
[2020-05-23 05:08] LABS: Albumin 3.2 g/dL (3.5-5.7); Albumin/Globulin Ratio 1.1 (1.1-2.2); Bilirubin,Total 0.4 mg/dL (0.3-1.0); Calcium 8.8 mg/dL (8.6-10.3); Magnesium 2.1 mg/dL (1.6-2.6); Potassium 3.8 mEq/L (3.5-5.1); Total Protein 6.2 g/dL (6.4-8.9)
[2020-05-23 05:09] LABS: % Iron Saturation 13 % (20-55); Iron 28 mcg/dL (65-175); Transferrin 151 mg/dL (203-362)
[2020-05-23 05:25] LABS: Ferritin 153 ng/mL (20-250)
[2020-05-23 06:34] LABS: Basophils # 0.1 K/mcL (0.0-0.2); Basophils % 0.6 %; Eosinophils # 0.4 K/mcL (0.0-0.6); Eosinophils % 4.1 %; Hemoglobin 11.2 g/dL (12.9-16.9); Immature Granulocytes % 0.2 % (0-4); Lymphocytes # 1.3 K/mcL (0.6-4.6); Lymphocytes % 15.6 %; Mean Corpuscular HGB Conc 31.1 g/dL (31.6-35.5); Mean Corpuscular Hemoglobin 28.3 pg (28.0-33.3); Mean Corpuscular Volume 90.9 fL (83.0-100.0); Mean Platelet Volume 10.6 fL (9.4-12.4); Monocytes # 0.7 K/mcL (0.0-1.3); Monocytes % 8.3 %; Neutrophils # 6.1 K/mcL (1.6-8.9); Platelet Count 214 K/mcL (140-400); Red Blood Count 3.96 M/mcL (4.19-5.50); Red Cell Distribution Width 15.9 % (11.5-14.5); Segmented Neutrophils % 71.2 %; White Blood Count 8.5 K/mcL (4.3-11.1)
[2020-05-23] MEDS: Insulin LISPRO 300 UNITS/3 ML VIAL SQ SCH ×3 (07:27→16:52)
[2020-05-23] MEDS ORDERED: Insulin LISPRO 300 UNITS/3 ML VIAL SQ SCH (08:00)
[2020-05-23] MEDS ORDERED: Iron Sucrose Complex 400 MG in 0.9 % Sodium Chloride 250 ML IVPB ONE (08:25)
[2020-05-23] MEDS: levoFLOXacin 750 MG TABLET PO SCH (09:55)
[2020-05-23] MEDS: Multivit/Ca/Min/Fe/FA 1 TAB TABLET PO SCH (09:55)
[2020-05-23] MEDS: Finasteride 5 MG TABLET PO SCH (09:56)
[2020-05-23] MEDS: Metoprolol XL (24 HR) Succ 25 MG TAB.ER.24H PO SCH (09:56)
[2020-05-23] MEDS: amLODIPine 5 MG TABLET PO SCH (09:56)
[2020-05-23] MEDS: Furosemide 40 MG/4 ML VIAL IVP SCH (09:56)
[2020-05-23] MEDS: Chlorhexidine Rinse 15 ML MOUTHWASH MM SCH ×2 (09:57→20:02)
[2020-05-23] MEDS: Isosorbide MONOnitrate (24 HR) 60 MG TAB.ER.24H PO SCH (09:59)
[2020-05-23] MEDS: Gatifloxacin OPTH Drops 2.5 mL BOTTLE RIGHT EYE SCH (10:00)
[2020-05-23 10:02] LABS: Estimated Average Glucose 160 mg/dl; Hemoglobin A1C 7.2 %
[2020-05-23 11:50] LABS: ANA IgG by ELISA NONE DETECTED (None Detected)
[2020-05-23] MEDS ORDERED: *HR* Warfarin 2.5 MG TABLET PO ONE (18:00)
[2020-05-23] MEDS: Vancomycin 500 MG in 0.9 % Sodium Chloride Mini Bag 100 ML IVPB SCH (19:53)
[2020-05-23] MEDS: Mirtazapine 15 MG TABLET PO SCH (20:02)
[2020-05-23] MEDS: QUEtiapine Fumarate 25 MG TABLET PO SCH (20:07)
[2020-05-24] MEDS: Ipratropium/Albuterol Neb 3 ML IH SCH ×4 (03:51→22:28)
[2020-05-24] MEDS: Chlorhexidine Rinse 15 ML MOUTHWASH MM SCH ×2 (07:52→21:54)
[2020-05-24] MEDS: Furosemide 40 MG/4 ML VIAL IVP SCH (07:52)
[2020-05-24] MEDS: Multivit/Ca/Min/Fe/FA 1 TAB TABLET PO SCH (07:52)
[2020-05-24] MEDS: Isosorbide MONOnitrate (24 HR) 60 MG TAB.ER.24H PO SCH (07:53)
[2020-05-24] MEDS: Metoprolol XL (24 HR) Succ 25 MG TAB.ER.24H PO SCH (07:54)
[2020-05-24] MEDS: Finasteride 5 MG TABLET PO SCH (07:55)
[2020-05-24] MEDS: amLODIPine 5 MG TABLET PO SCH (07:55)
[2020-05-24] MEDS: hydrALAZINE 25 MG TABLET PO SCH ×3 (07:56→21:54)
[2020-05-24] MEDS: Insulin LISPRO 300 UNITS/3 ML VIAL SQ SCH ×3 (08:26→17:15)
[2020-05-24 10:19] LABS: Basophils # 0.1 K/mcL (0.0-0.2); Basophils % 0.7 %; Eosinophils # 0.4 K/mcL (0.0-0.6); Eosinophils % 6.1 %; Hematocrit 36.2 % (37.5-50.1); Hemoglobin 11.2 g/dL (12.9-16.9); Immature Granulocytes % 0.7 % (0-4); Lymphocytes # 1.2 K/mcL (0.6-4.6); Lymphocytes % 17.9 %; Mean Corpuscular HGB Conc 30.9 g/dL (31.6-35.5); Mean Corpuscular Hemoglobin 28.6 pg (28.0-33.3); Mean Corpuscular Volume 92.3 fL (83.0-100.0); Mean Platelet Volume 10.6 fL (9.4-12.4); Monocytes # 0.5 K/mcL (0.0-1.3); Neutrophils # 4.5 K/mcL (1.6-8.9); Platelet Count 230 K/mcL (140-400); Red Blood Count 3.92 M/mcL (4.19-5.50); Red Cell Distribution Width 15.9 % (11.5-14.5); Segmented Neutrophils % 66.6 %; White Blood Count 6.7 K/mcL (4.3-11.1)
[2020-05-24 10:33] LABS: Albumin/Globulin Ratio 1.1 (1.1-2.2); Bilirubin,Total 0.4 mg/dL (0.3-1.0); Calcium 8.6 mg/dL (8.6-10.3); Globulin 2.8 g/dL (2.4-3.5); Phosphorous 4.7 mg/dL (2.7-4.5); Potassium 3.5 mEq/L (3.5-5.1); Total Protein 5.8 g/dL (6.4-8.9)
[2020-05-24 10:47] LABS: INR 1.9; Prothrombin Time 21.9 Seconds (9.4-12.1)
[2020-05-24 11:37] LABS: Serine Protease-3 Antibody 4 AU/mL (0-19)
[2020-05-24] MEDS ORDERED: *HR* Warfarin 2.5 MG TABLET PO ONE (18:00)
[2020-05-24] MEDS: QUEtiapine Fumarate 25 MG TABLET PO SCH (21:52)
[2020-05-24] MEDS: Mirtazapine 15 MG TABLET PO SCH (21:53)
[2020-05-25] MEDS: Acetaminophen 325 MG TABLET PO PRN (00:59)
[2020-05-25 04:21] LABS: Hematocrit 33.3 % (37.5-50.1); Hemoglobin 10.5 g/dL (12.9-16.9); Mean Corpuscular HGB Conc 31.5 g/dL (31.6-35.5); Mean Corpuscular Hemoglobin 28.5 pg (28.0-33.3); Mean Corpuscular Volume 90.2 fL (83.0-100.0); Mean Platelet Volume 10.6 fL (9.4-12.4); Platelet Count 211 K/mcL (140-400); Red Blood Count 3.69 M/mcL (4.19-5.50); Red Cell Distribution Width 15.8 % (11.5-14.5); White Blood Count 6.7 K/mcL (4.3-11.1)
[2020-05-25 04:22] LABS: INR 1.8; Prothrombin Time 20.6 Seconds (9.4-12.1)
[2020-05-25] MEDS: Ipratropium/Albuterol Neb 3 ML IH SCH ×4 (04:30→22:33)
[2020-05-25 04:33] LABS: Calcium 8.4 mg/dL (8.6-10.3); Potassium 3.5 mEq/L (3.5-5.1)
[2020-05-25] MEDS: Insulin LISPRO 300 UNITS/3 ML VIAL SQ SCH ×3 (08:37→16:19)
[2020-05-25] MEDS: Chlorhexidine Rinse 15 ML MOUTHWASH MM SCH ×2 (08:38→20:30)
[2020-05-25] MEDS: hydrALAZINE 25 MG TABLET PO SCH ×3 (08:39→20:28)
[2020-05-25] MEDS: Multivit/Ca/Min/Fe/FA 1 TAB TABLET PO SCH (08:39)
[2020-05-25] MEDS: levoFLOXacin 750 MG TABLET PO SCH (08:40)
[2020-05-25] MEDS: Finasteride 5 MG TABLET PO SCH (08:40)
[2020-05-25] MEDS: amLODIPine 5 MG TABLET PO SCH (08:40)
[2020-05-25] MEDS: Metoprolol XL (24 HR) Succ 25 MG TAB.ER.24H PO SCH (08:40)
[2020-05-25] MEDS: Isosorbide MONOnitrate (24 HR) 60 MG TAB.ER.24H PO SCH (08:40)
[2020-05-25] MEDS: Furosemide 40 MG/4 ML VIAL IVP SCH (08:43)
[2020-05-25] MEDS ORDERED: hydrALAZINE 25 MG TABLET PO SCH (15:00)
[2020-05-25] MEDS ORDERED: *HR* Warfarin 2.5 MG TABLET PO ONE (18:00)
[2020-05-25] MEDS ORDERED: Ondansetron 4 MG/2 ML VIAL IVP PRN (19:43)
[2020-05-25] MEDS: QUEtiapine Fumarate 25 MG TABLET PO SCH (20:27)
[2020-05-25] MEDS: Mirtazapine 15 MG TABLET PO SCH (20:29)
[2020-05-26] MEDS: Ipratropium/Albuterol Neb 3 ML IH SCH ×4 (04:15→22:08)
[2020-05-26 06:04] LABS: Hematocrit 32.9 % (37.5-50.1); Hemoglobin 10.1 g/dL (12.9-16.9); Mean Corpuscular HGB Conc 30.7 g/dL (31.6-35.5); Mean Corpuscular Hemoglobin 28.1 pg (28.0-33.3); Mean Corpuscular Volume 91.6 fL (83.0-100.0); Mean Platelet Volume 10.5 fL (9.4-12.4); Platelet Count 211 K/mcL (140-400); Prothrombin Time 22.5 Seconds (9.4-12.1); Red Blood Count 3.59 M/mcL (4.19-5.50); Red Cell Distribution Width 15.9 % (11.5-14.5); White Blood Count 6.9 K/mcL (4.3-11.1)
[2020-05-26 06:14] LABS: Calcium 8.2 mg/dL (8.6-10.3); Potassium 3.5 mEq/L (3.5-5.1)
[2020-05-26] MEDS: hydrALAZINE 25 MG TABLET PO SCH ×3 (08:09→20:46)
[2020-05-26] MEDS: Chlorhexidine Rinse 15 ML MOUTHWASH MM SCH ×2 (08:09→20:47)
[2020-05-26] MEDS: Multivit/Ca/Min/Fe/FA 1 TAB TABLET PO SCH (08:10)
[2020-05-26] MEDS: Finasteride 5 MG TABLET PO SCH (08:10)
[2020-05-26] MEDS: NIFEdipine XL (24 HR) 60 MG TAB.ER.24 PO SCH (08:10)
[2020-05-26] MEDS: Metoprolol XL (24 HR) Succ 25 MG TAB.ER.24H PO SCH (08:11)
[2020-05-26] MEDS: Isosorbide MONOnitrate (24 HR) 60 MG TAB.ER.24H PO SCH (08:11)
[2020-05-26] MEDS: Insulin LISPRO 300 UNITS/3 ML VIAL SQ SCH ×3 (08:11→17:13)
[2020-05-26] MEDS: Furosemide 20 MG TABLET PO SCH (08:11)
[2020-05-26 17:01] LABS: Adenovirus Not Detected (Not Detect); Bordetella Pertussis Not Detected (Not Detect); Chlamydophila pneumoniae Not Detected (Not Detect); Coronavirus 229E Not Detected (Not Detect); Coronavirus HKU1 Not Detected (Not Detect); Coronavirus NL63 Not Detected (Not Detect); Coronavirus OC43 Not Detected (Not Detect); Human Metapneumovirus Not Detected (Not Detect); Human Rhinovirus/Enterovirus Not Detected (Not Detect); Influenza A Subtype 2009 H1 Not Detected (Not Detect); Influenza B Not Detected (Not Detect); Mycoplasma pneumoniae Not Detected (Not Detect); Parainfluenza Virus 1 Not Detected (Not Detect); Parainfluenza Virus 2 Not Detected (Not Detect); Parainfluenza Virus 3 Not Detected (Not Detect); Parainfluenza Virus 4 Not Detected (Not Detect); Respiratory Syncytial Virus Not Detected (Not Detect); SARS-CoV-2 Not Detected (Not Detect)
[2020-05-26] MEDS ORDERED: *HR* Warfarin 3 MG TABLET PO ONE (18:00)
[2020-05-26] MEDS: Mirtazapine 15 MG TABLET PO SCH (20:47)
[2020-05-26] MEDS: QUEtiapine Fumarate 25 MG TABLET PO SCH (20:47)
[2020-05-27] MEDS: Ipratropium/Albuterol Neb 3 ML IH SCH ×2 (03:47→10:41)
[2020-05-27 06:57] LABS: Hematocrit 31.9 % (37.5-50.1); Hemoglobin 9.9 g/dL (12.9-16.9); Mean Corpuscular Hemoglobin 27.8 pg (28.0-33.3); Mean Corpuscular Volume 89.6 fL (83.0-100.0); Platelet Count 208 K/mcL (140-400); Red Blood Count 3.56 M/mcL (4.19-5.50); Red Cell Distribution Width 15.9 % (11.5-14.5); White Blood Count 6.7 K/mcL (4.3-11.1)
[2020-05-27 06:58] LABS: INR 2.4; Prothrombin Time 27.6 Seconds (9.4-12.1)
[2020-05-27 07:12] LABS: Calcium 8.3 mg/dL (8.6-10.3); Potassium 3.4 mEq/L (3.5-5.1)
[2020-05-27 07:51] VITALS: BP 119/73
[2020-05-27] MEDS: Insulin LISPRO 300 UNITS/3 ML VIAL SQ SCH (08:29)
[2020-05-27] MEDS: Chlorhexidine Rinse 15 ML MOUTHWASH MM SCH (08:34)
[2020-05-27] MEDS: NIFEdipine XL (24 HR) 60 MG TAB.ER.24 PO SCH (08:35)
[2020-05-27] MEDS: Finasteride 5 MG TABLET PO SCH (08:35)
[2020-05-27] MEDS: Isosorbide MONOnitrate (24 HR) 60 MG TAB.ER.24H PO SCH (08:35)
[2020-05-27] MEDS: Furosemide 20 MG TABLET PO SCH (08:35)
[2020-05-27] MEDS: Multivit/Ca/Min/Fe/FA 1 TAB TABLET PO SCH (08:36)
[2020-05-27] MEDS: hydrALAZINE 25 MG TABLET PO SCH (08:36)
[2020-05-27] MEDS: Metoprolol XL (24 HR) Succ 25 MG TAB.ER.24H PO SCH (08:36)
[2020-05-27] MEDS: levoFLOXacin 750 MG TABLET PO SCH (08:36)
[2020-05-27] MEDS: Calcium Gluconate 1gm/50mL 1 GM/50 ML BAG IVPB SCH ×2 (09:38→11:40)
[2020-05-27] MEDS ORDERED: *HR* Warfarin 2.5 MG TABLET PO ONE (18:00)
== END 2020-05-27 12:26 | DRG 689 ==
LOC: EMEROOARM 20:23 → 3ANU 20:23 → SUATTDRO 05-17 01:19 → 3ANU 05-17 03:03
PROVIDERS: ADMIT Internal Medicine; ATTEND Internal Medicine

== ENCOUNTER 2021-08-26 07:53 | Inpatient (IN) ==
[2021-08-26] MEDS ORDERED: Naloxone 0.4 MG/ML INJ IVP PRN (09:14)
[2021-08-26] MEDS ORDERED: Melatonin 3 MG TABLET PO PRN (09:14)
[2021-08-26] MEDS ORDERED: Ondansetron 4 MG/2 ML VIAL IVP PRN (09:14)
[2021-08-26] MEDS ORDERED: *HR* Phytonadione 5 MG TABLET PO ONE (09:18)
[2021-08-26] MEDS: Metoprolol XL (24 HR) Succ 25 MG TAB.ER.24H PO SCH (18:20)
[2021-08-26] MEDS: hydrALAZINE 25 MG TABLET PO SCH (20:08)
[2021-08-26] MEDS: QUEtiapine Fumarate 25 MG TABLET PO SCH (20:09)
[2021-08-26] MEDS: Mirtazapine 15 MG TABLET PO SCH (20:09)
[2021-08-27 01:56] LABS: Basophils # 0.1 K/mcL (0.0-0.2); Basophils % 0.6 %; Eosinophils # 0.2 K/mcL (0.0-0.6); Eosinophils % 2.6 %; Hematocrit 25.5 % (37.5-50.1); Hemoglobin 8.5 g/dL (12.9-16.9); Immature Granulocytes % 0.7 % (0-4); Lymphocytes # 1.5 K/mcL (0.6-4.6); Lymphocytes % 17.3 %; Mean Corpuscular HGB Conc 33.3 g/dL (31.6-35.5); Mean Corpuscular Volume 90.1 fL (83.0-100.0); Mean Platelet Volume 10.7 fL (9.4-12.4); Monocytes # 0.7 K/mcL (0.0-1.3); Monocytes % 8.4 %; Neutrophils # 5.9 K/mcL (1.6-8.9); Nucleated Red Blood Cells 0.2 /100 WBC (0); Platelet Count 156 K/mcL (140-400); Red Blood Count 2.83 M/mcL (4.19-5.50); Red Cell Distribution Width 14.3 % (11.5-14.5); Segmented Neutrophils % 70.4 %; White Blood Count 8.4 K/mcL (4.3-11.1)
[2021-08-27 02:04] LABS: INR 2.2; Prothrombin Time 24.9 Seconds (9.4-12.1)
[2021-08-27 02:14] LABS: % Iron Saturation 31 % (20-55); Calcium 8.1 mg/dL (8.6-10.3); Iron 58 mcg/dL (65-175); Potassium 3.7 mEq/L (3.5-5.1); Transferrin 133 mg/dL (203-362)
[2021-08-27 02:32] LABS: Ferritin 275 ng/mL (20-250)
[2021-08-27 02:38] LABS: Folate 18.1 ng/mL (3.0-16.0)
[2021-08-27] MEDS: Finasteride 5 MG TABLET PO SCH (08:03)
[2021-08-27] MEDS: NIFEdipine XL (24 HR) 30 MG TAB.ER.24 PO SCH (08:03)
[2021-08-27] MEDS: Isosorbide MONOnitrate (24 HR) 60 MG TAB.ER.24H PO SCH (08:04)
[2021-08-27] MEDS: Furosemide 40 MG TABLET PO SCH (08:04)
[2021-08-27] MEDS: Metoprolol XL (24 HR) Succ 25 MG TAB.ER.24H PO SCH (08:04)
[2021-08-27] MEDS: hydrALAZINE 25 MG TABLET PO SCH (08:04)
[2021-08-27] MEDS: Pantoprazole 40 MG VIAL IVP SCH ×2 (09:55→17:14)
[2021-08-27] MEDS ORDERED: Furosemide 20 MG TABLET PO SCH (17:00)
[2021-08-27] MEDS ORDERED: SODIUM CHLORIDE/NAHCO3/KCL/PEG 4,000 ML SOLN.RECON PO ONE (17:00)
[2021-08-27] MEDS: 0.9 % Sodium Chloride 1,000 ML IVC SCH (17:13)
[2021-08-27] MEDS: Mirtazapine 15 MG TABLET PO SCH (20:00)
[2021-08-27] MEDS: QUEtiapine Fumarate 25 MG TABLET PO SCH (20:00)
[2021-08-27 22:31] LABS: Hematocrit 24.2 % (37.5-50.1); Hemoglobin 7.9 g/dL (12.9-16.9)
[2021-08-27] MEDS ORDERED: *HR* Dextrose 50 % in Water (Syg) 50 ML SYRINGE IVP PRN (23:51)
[2021-08-27] MEDS ORDERED: D5% in Water 1,000 ML IVC PRN (23:51)
[2021-08-27] MEDS ORDERED: Dextrose 4 GM Chewable Tablets PO PRN ×2 (23:51)
[2021-08-28] MEDS: Insulin LISPRO 300 UNITS/3 ML VIAL SUBQ SCH ×5 (00:02→21:26)
[2021-08-28 04:44] LABS: Bacteria,Urine Few per hpf (None-Few); Bilirubin,Urine Negative (Negative); Blood,Urine Negative (Negative); Budding Yeast,Urine Few per hpf (None Seen); Clarity,Urine Clear (Clear); Color,Urine Light-Yellow (Yellow); Glucose,Urine (UA) Normal (Normal); Ketones,Urine Negative (Negative); Leukocyte Esterase,Urine Small (Negative); Mucus,Urine Few per lpf (None-Few); Nitrite,Urine Negative (Negative); Protein,Urine 100 mg/dL (Neg-Trace); RBC,Urine 0-3 per hpf (0-3); Specific Gravity,Urine 1.011 (1.010-1.025); Urobilinogen,Urine Normal (Normal)
[2021-08-28] MEDS: Pantoprazole 40 MG VIAL IVP SCH ×2 (05:34→17:11)
[2021-08-28] MEDS: 0.9 % Sodium Chloride 1,000 ML IVC SCH ×2 (05:56→17:59)
[2021-08-28 06:33] LABS: Basophils # 0.1 K/mcL (0.0-0.2); Basophils % 0.5 %; Eosinophils # 0.3 K/mcL (0.0-0.6); Eosinophils % 2.9 %; Hematocrit 24.9 % (37.5-50.1); Immature Granulocytes % 1.1 % (0-4); Lymphocytes # 1.7 K/mcL (0.6-4.6); Lymphocytes % 17.4 %; Mean Corpuscular HGB Conc 32.1 g/dL (31.6-35.5); Mean Corpuscular Volume 90.2 fL (83.0-100.0); Mean Platelet Volume 10.2 fL (9.4-12.4); Monocytes # 0.7 K/mcL (0.0-1.3); Monocytes % 7.7 %; Neutrophils # 6.8 K/mcL (1.6-8.9); Platelet Count 173 K/mcL (140-400); Red Blood Count 2.76 M/mcL (4.19-5.50); Red Cell Distribution Width 14.4 % (11.5-14.5); Segmented Neutrophils % 70.4 %; White Blood Count 9.7 K/mcL (4.3-11.1)
[2021-08-28 06:49] LABS: Calcium 7.6 mg/dL (8.6-10.3); Potassium 3.4 mEq/L (3.5-5.1)
[2021-08-28] MEDS ORDERED: Lidocaine -MPF 2% 5 ML VIAL ONE (07:52)
[2021-08-28] MEDS ORDERED: *HR* Etomidate 40 MG/20 ML VIAL IVP ONE (08:15)
[2021-08-28] MEDS ORDERED: EPHEDrine 50 MG/ML VIAL ONE (08:49)
[2021-08-28] MEDS ORDERED: *HR* Succinylcholine 200 MG/10 ML VIAL IVP ONE (09:16)
[2021-08-28] MEDS: Metoprolol XL (24 HR) Succ 25 MG TAB.ER.24H PO SCH (09:27)
[2021-08-28] MEDS: Finasteride 5 MG TABLET PO SCH (09:27)
[2021-08-28 10:12] LABS: Estimated Average Glucose 146 mg/dl; Hemoglobin A1C 6.7 %
[2021-08-28] MEDS: Mirtazapine 15 MG TABLET PO SCH (21:24)
[2021-08-28] MEDS: QUEtiapine Fumarate 25 MG TABLET PO SCH (21:24)
[2021-08-28] MEDS ORDERED: Ipratropium/Albuterol Neb 3 ML IH STA (21:50)
[2021-08-28 22:25] LABS: ABG Base Excess -9 mEq/L (-2 to 3); ABG HCO3 16 mEq/L (21-27); ABG Oxygen Saturation 97 % (95-98); ABG PCO2 28 mmHg (35-45); ABG PH 7.37 pH Units (7.32-7.45); ABG PO2 93 mmHg (85-104); ABG TCO2 17 mEq/L (20-26)
[2021-08-29] MEDS: Budesonide/Formoterol 80/4.5 1 PUFF INH IH SCH ×3 (02:22→19:49)
[2021-08-29 02:58] LABS: Basophils % 0.3 %; Eosinophils # 0.3 K/mcL (0.0-0.6); Eosinophils % 2.9 %; Hematocrit 23.3 % (37.5-50.1); Hemoglobin 7.5 g/dL (12.9-16.9); Immature Granulocytes % 1.5 % (0-4); Lymphocytes # 1.5 K/mcL (0.6-4.6); Lymphocytes % 17.1 %; Mean Corpuscular HGB Conc 32.2 g/dL (31.6-35.5); Mean Corpuscular Hemoglobin 30.2 pg (28.0-33.3); Mean Platelet Volume 10.9 fL (9.4-12.4); Monocytes # 0.6 K/mcL (0.0-1.3); Monocytes % 7.5 %; Neutrophils # 6.1 K/mcL (1.6-8.9); Platelet Count 166 K/mcL (140-400); Red Blood Count 2.48 M/mcL (4.19-5.50); Red Cell Distribution Width 14.3 % (11.5-14.5); Segmented Neutrophils % 70.7 %; White Blood Count 8.6 K/mcL (4.3-11.1)
[2021-08-29 03:07] LABS: Calcium 7.3 mg/dL (8.6-10.3); INR 1.4; Potassium 3.9 mEq/L (3.5-5.1); Prothrombin Time 15.4 Seconds (9.4-12.1)
[2021-08-29] MEDS: Ipratropium/Albuterol Neb 3 ML IH SCH ×5 (03:23→19:50)
[2021-08-29] MEDS: Insulin LISPRO 300 UNITS/3 ML VIAL SUBQ SCH ×4 (07:38→20:35)
[2021-08-29] MEDS: carvediloL 6.25 MG TABLET PO SCH ×2 (08:54→16:39)
[2021-08-29] MEDS: Finasteride 5 MG TABLET PO SCH (08:54)
[2021-08-29] MEDS: cefTRIAXone 2,000 MG in 0.9 % Sodium Chloride Mini Bag 100 ML IVPB SCH (11:50)
[2021-08-29] MEDS: MetroNIDAZOLE 500 MG/100 ML 500 MG/100 ML BAG IVPB SCH (16:37)
[2021-08-29] MEDS: QUEtiapine Fumarate 25 MG TABLET PO SCH (20:34)
[2021-08-29] MEDS: Mirtazapine 15 MG TABLET PO SCH (20:34)
[2021-08-30] MEDS: Ipratropium/Albuterol Neb 3 ML IH SCH ×8 (00:16→23:57)
[2021-08-30] MEDS ORDERED: methylPREDNISolone 125 MG/2 ML VIAL IVP ONE (01:21)
[2021-08-30 01:51] LABS: Basophils # 0.1 K/mcL (0.0-0.2); Basophils % 0.5 %; Eosinophils # 0.2 K/mcL (0.0-0.6); Eosinophils % 2.4 %; Hematocrit 24.4 % (37.5-50.1); Hemoglobin 7.7 g/dL (12.9-16.9); Immature Granulocytes % 4.1 % (0-4); Lymphocytes % 10.7 %; Mean Corpuscular HGB Conc 31.6 g/dL (31.6-35.5); Mean Corpuscular Hemoglobin 29.4 pg (28.0-33.3); Mean Corpuscular Volume 93.1 fL (83.0-100.0); Mean Platelet Volume 10.4 fL (9.4-12.4); Monocytes # 0.4 K/mcL (0.0-1.3); Monocytes % 4.4 %; Neutrophils # 7.2 K/mcL (1.6-8.9); Nucleated Red Blood Cells 0.3 /100 WBC (0); Platelet Count 173 K/mcL (140-400); Red Blood Count 2.62 M/mcL (4.19-5.50); Red Cell Distribution Width 14.7 % (11.5-14.5); Segmented Neutrophils % 77.9 %; White Blood Count 9.3 K/mcL (4.3-11.1)
[2021-08-30 02:05] LABS: Calcium 7.6 mg/dL (8.6-10.3); Potassium 4.4 mEq/L (3.5-5.1)
[2021-08-30] MEDS: Budesonide/Formoterol 80/4.5 1 PUFF INH IH SCH ×2 (07:32→20:15)
[2021-08-30] MEDS: Insulin LISPRO 300 UNITS/3 ML VIAL SUBQ SCH ×4 (07:44→21:59)
[2021-08-30] MEDS: cefTRIAXone 2,000 MG in 0.9 % Sodium Chloride Mini Bag 100 ML IVPB SCH (07:44)
[2021-08-30] MEDS: Finasteride 5 MG TABLET PO SCH (07:45)
[2021-08-30] MEDS: carvediloL 6.25 MG TABLET PO SCH ×2 (07:45→17:04)
[2021-08-30] MEDS: MetroNIDAZOLE 500 MG/100 ML 500 MG/100 ML BAG IVPB SCH ×3 (07:45→15:42)
[2021-08-30] MEDS: hydrALAZINE 25 MG TABLET PO SCH ×3 (09:05→21:57)
[2021-08-30] MEDS: Furosemide 40 MG TABLET PO SCH (09:05)
[2021-08-30] MEDS: Fluticasone Propionate Nasal 50 MCG/SPRAY BOTTLE NS SCH (10:40)
[2021-08-30] MEDS: Mirtazapine 15 MG TABLET PO SCH (21:56)
[2021-08-30] MEDS: QUEtiapine Fumarate 25 MG TABLET PO SCH (21:57)
[2021-08-31] MEDS: MetroNIDAZOLE 500 MG/100 ML 500 MG/100 ML BAG IVPB SCH ×4 (00:23→23:40)
[2021-08-31] MEDS: Sennosides/Docusate Sodium TABLET PO SCH ×3 (00:23→20:55)
[2021-08-31 03:23] LABS: Basophils % 0.2 %; Eosinophils % 0.1 %; Hematocrit 22.9 % (37.5-50.1); Hemoglobin 7.1 g/dL (12.9-16.9); Immature Granulocytes % 1.6 % (0-4); Lymphocytes # 0.8 K/mcL (0.6-4.6); Lymphocytes % 5.4 %; Mean Corpuscular Hemoglobin 28.9 pg (28.0-33.3); Mean Corpuscular Volume 93.1 fL (83.0-100.0); Mean Platelet Volume 10.8 fL (9.4-12.4); Monocytes # 0.8 K/mcL (0.0-1.3); Monocytes % 4.9 %; Neutrophils # 13.7 K/mcL (1.6-8.9); Platelet Count 177 K/mcL (140-400); Red Blood Count 2.46 M/mcL (4.19-5.50); Red Cell Distribution Width 14.9 % (11.5-14.5); Segmented Neutrophils % 87.8 %
[2021-08-31 03:24] LABS: White Blood Count 15.6 K/mcL (4.3-11.1)
[2021-08-31 03:42] LABS: Calcium 7.9 mg/dL (8.6-10.3); Potassium 4.4 mEq/L (3.5-5.1)
[2021-08-31] MEDS: Ipratropium/Albuterol Neb 3 ML IH SCH ×6 (03:56→23:56)
[2021-08-31] MEDS: Insulin LISPRO 300 UNITS/3 ML VIAL SUBQ SCH ×4 (07:40→20:51)
[2021-08-31] MEDS: Budesonide/Formoterol 80/4.5 1 PUFF INH IH SCH ×2 (07:47→20:17)
[2021-08-31] MEDS: cefTRIAXone 2,000 MG in 0.9 % Sodium Chloride Mini Bag 100 ML IVPB SCH (07:59)
[2021-08-31] MEDS: NIFEdipine XL (24 HR) 30 MG TAB.ER.24 PO SCH (08:00)
[2021-08-31] MEDS: Furosemide 40 MG TABLET PO SCH (08:00)
[2021-08-31] MEDS: Isosorbide MONOnitrate (24 HR) 60 MG TAB.ER.24H PO SCH (08:01)
[2021-08-31] MEDS: Finasteride 5 MG TABLET PO SCH (08:01)
[2021-08-31] MEDS: carvediloL 6.25 MG TABLET PO SCH ×2 (08:01→16:17)
[2021-08-31] MEDS: hydrALAZINE 25 MG TABLET PO SCH (08:01)
[2021-08-31] MEDS: Fluticasone Propionate Nasal 50 MCG/SPRAY BOTTLE NS SCH (08:04)
[2021-08-31] MEDS ORDERED: hydrALAZINE 25 MG TABLET PO SCH (11:35)
[2021-08-31] MEDS ORDERED: NIFEdipine XL (24 HR) 30 MG TAB.ER.24 PO ONE (12:15)
[2021-08-31] MEDS ORDERED: E-Z-PAQUE (BARIUM SULF) SUSP 1 BOTTLE PO ONE (15:02)
[2021-08-31] MEDS ORDERED: E-Z-HD (BARIUM SULF) SUSPENSION PO ONE (15:02)
[2021-08-31] MEDS ORDERED: 0.9 % Sodium Chloride 500 ML ONE (18:18)
[2021-08-31] MEDS ORDERED: 0.9 % Sodium Chloride 500 ML IV ONE (18:19)
[2021-08-31] MEDS ORDERED: Ringers Solution, Lactated 1,000 ML IVC ONE (20:10)
[2021-08-31] MEDS ORDERED: Acetaminophen 325 MG TABLET PO PRN (20:43)
[2021-08-31] MEDS: QUEtiapine Fumarate 25 MG TABLET PO SCH (20:55)
[2021-08-31] MEDS: Mirtazapine 15 MG TABLET PO SCH (20:56)
[2021-08-31] MEDS: Lactulose Oral Soln 20 GM/30 ML UDC PO SCH (22:27)
[2021-08-31] MEDS ORDERED: Heparin 25,000UNIT/250ML 1/2NS 25,000 UNIT/250 ML IV.SOLN IVC SCH (22:30)
[2021-08-31] MEDS ORDERED: *HR* Heparin 5,000 UNIT/ML VIAL IVP ONE (22:38)
[2021-08-31] MEDS ORDERED: *HR* Heparin 5,000 UNIT/ML VIAL IVP PRN ×2 (22:38)
[2021-08-31] MEDS: Aspirin Enteric Coated 81 MG Tablet PO SCH (22:46)
[2021-09-01] MEDS ORDERED: Perflutren Lipid Microsphere 1.3 ML in 0.9 % Sodium Chloride 8.7 ML IVP PRN (01:25)
[2021-09-01] MEDS ORDERED: Norepinephrine 4 MG/254 ML IV.SOLN IVC SCH (01:30)
[2021-09-01] MEDS: Ipratropium/Albuterol Neb 3 ML IH SCH ×6 (03:39→23:23)
[2021-09-01 04:20] LABS: VBG HCO3 16 mEq/L (21-27); VBG PCO2 33 mmHg (41-51); VBG PO2 74 mmHg (25-50)
[2021-09-01 04:31] LABS: Basophils % 0.4 %; Eosinophils # 0.2 K/mcL (0.0-0.6); Eosinophils % 1.5 %; Hematocrit 20.8 % (37.5-50.1); Hemoglobin 6.7 g/dL (12.9-16.9); Immature Granulocytes % 2.1 % (0-4); Lymphocytes # 1.1 K/mcL (0.6-4.6); Lymphocytes % 10.2 %; Mean Corpuscular HGB Conc 32.2 g/dL (31.6-35.5); Mean Corpuscular Hemoglobin 29.3 pg (28.0-33.3); Mean Corpuscular Volume 90.8 fL (83.0-100.0); Mean Platelet Volume 10.7 fL (9.4-12.4); Monocytes # 0.5 K/mcL (0.0-1.3); Monocytes % 4.9 %; Neutrophils # 8.9 K/mcL (1.6-8.9); Nucleated Red Blood Cells 0.3 /100 WBC (0); Platelet Count 179 K/mcL (140-400); Red Blood Count 2.29 M/mcL (4.19-5.50); Red Cell Distribution Width 15.5 % (11.5-14.5); Segmented Neutrophils % 80.9 %
[2021-09-01 04:38] LABS: Heparin anti-factor XA UFH 0.8 IU/mL (0.30-0.70); INR 1.5; Prothrombin Time 16.7 Seconds (9.4-12.1)
[2021-09-01 04:42] LABS: Calcium 7.7 mg/dL (8.6-10.3)
[2021-09-01 04:53] LABS: Activated Partial Thrombo Time 122.9 Seconds (26.0-36.0)
[2021-09-01] MEDS ORDERED: 0.9 % Sodium Chloride 250 ML IVC SCH (07:45)
[2021-09-01] MEDS: Insulin LISPRO 300 UNITS/3 ML VIAL SUBQ SCH ×4 (08:47→20:24)
[2021-09-01] MEDS ORDERED: NIFEdipine XL (24 HR) 60 MG TAB.ER.24 PO SCH (09:00)
[2021-09-01] MEDS: Lactulose Oral Soln 20 GM/30 ML UDC PO SCH ×2 (09:27→20:25)
[2021-09-01] MEDS: MetroNIDAZOLE 500 MG/100 ML 500 MG/100 ML BAG IVPB SCH ×3 (09:28→23:46)
[2021-09-01] MEDS: Sennosides/Docusate Sodium TABLET PO SCH ×2 (09:28→20:24)
[2021-09-01] MEDS: Aspirin Enteric Coated 81 MG Tablet PO SCH (09:28)
[2021-09-01] MEDS: carvediloL 6.25 MG TABLET PO SCH ×2 (09:28→17:54)
[2021-09-01] MEDS: Isosorbide MONOnitrate (24 HR) 60 MG TAB.ER.24H PO SCH (09:28)
[2021-09-01] MEDS: Furosemide 40 MG TABLET PO SCH (09:28)
[2021-09-01] MEDS: cefTRIAXone 2,000 MG in 0.9 % Sodium Chloride Mini Bag 100 ML IVPB SCH (09:29)
[2021-09-01] MEDS: Fluticasone Propionate Nasal 50 MCG/SPRAY BOTTLE NS SCH (09:34)
[2021-09-01] MEDS: Budesonide/Formoterol 80/4.5 1 PUFF INH IH SCH ×2 (11:03→20:31)
[2021-09-01] MEDS: Finasteride 5 MG TABLET PO SCH (11:47)
[2021-09-01] MEDS: Mirtazapine 15 MG TABLET PO SCH (20:23)
[2021-09-01] MEDS: QUEtiapine Fumarate 25 MG TABLET PO SCH (20:24)
[2021-09-02 01:45] LABS: Basophils # 0.1 K/mcL (0.0-0.2); Basophils % 0.7 %; Eosinophils # 0.3 K/mcL (0.0-0.6); Eosinophils % 3.3 %; Hematocrit 25.7 % (37.5-50.1); Hemoglobin 7.9 g/dL (12.9-16.9); Immature Granulocytes % 2.1 % (0-4); Lymphocytes # 1.1 K/mcL (0.6-4.6); Lymphocytes % 12.3 %; Mean Corpuscular HGB Conc 30.7 g/dL (31.6-35.5); Mean Corpuscular Hemoglobin 28.4 pg (28.0-33.3); Mean Corpuscular Volume 92.4 fL (83.0-100.0); Mean Platelet Volume 10.6 fL (9.4-12.4); Monocytes # 0.6 K/mcL (0.0-1.3); Monocytes % 6.4 %; Neutrophils # 6.5 K/mcL (1.6-8.9); Nucleated Red Blood Cells 0.2 /100 WBC (0); Platelet Count 174 K/mcL (140-400); Red Blood Count 2.78 M/mcL (4.19-5.50); Red Cell Distribution Width 17.2 % (11.5-14.5); Segmented Neutrophils % 75.2 %; White Blood Count 8.7 K/mcL (4.3-11.1)
[2021-09-02 01:58] LABS: Albumin 3.1 g/dL (3.5-5.7); Albumin/Globulin Ratio 1.2 (1.1-2.2); Bilirubin,Total 0.3 mg/dL (0.3-1.0); Globulin 2.6 g/dL (2.4-3.5); Potassium 3.6 mEq/L (3.5-5.1); Total Protein 5.7 g/dL (6.4-8.9)
[2021-09-02] MEDS: Ipratropium/Albuterol Neb 3 ML IH SCH ×6 (03:44→23:53)
[2021-09-02] MEDS: Budesonide/Formoterol 80/4.5 1 PUFF INH IH SCH ×2 (07:24→20:52)
[2021-09-02] MEDS: Insulin LISPRO 300 UNITS/3 ML VIAL SUBQ SCH ×4 (07:57→21:24)
[2021-09-02] MEDS: Sennosides/Docusate Sodium TABLET PO SCH ×2 (08:18→21:42)
[2021-09-02] MEDS: Lactulose Oral Soln 20 GM/30 ML UDC PO SCH ×2 (08:18→21:42)
[2021-09-02] MEDS: carvediloL 6.25 MG TABLET PO SCH ×2 (08:18→18:17)
[2021-09-02] MEDS: MetroNIDAZOLE 500 MG/100 ML 500 MG/100 ML BAG IVPB SCH (08:18)
[2021-09-02] MEDS: Aspirin Enteric Coated 81 MG Tablet PO SCH (08:18)
[2021-09-02] MEDS: Fluticasone Propionate Nasal 50 MCG/SPRAY BOTTLE NS SCH (08:19)
[2021-09-02] MEDS: Isosorbide MONOnitrate (24 HR) 60 MG TAB.ER.24H PO SCH (08:19)
[2021-09-02] MEDS: Finasteride 5 MG TABLET PO SCH (08:19)
[2021-09-02] MEDS: Furosemide 40 MG TABLET PO SCH (08:19)
[2021-09-02] MEDS: cefTRIAXone 2,000 MG in 0.9 % Sodium Chloride Mini Bag 100 ML IVPB SCH (08:19)
[2021-09-02] MEDS: metroNIDAZOLE 500 MG TABLET PO SCH ×2 (16:05→21:42)
[2021-09-02] MEDS ORDERED: levoFLOXacin 500 MG/100 ML 500 MG/100 ML BAG IVPB SCH (19:00)
[2021-09-02] MEDS ORDERED: levoFLOXacin 500 MG TABLET PO SCH (19:00)
[2021-09-02] MEDS: Mirtazapine 15 MG TABLET PO SCH (21:42)
[2021-09-02] MEDS: QUEtiapine Fumarate 25 MG TABLET PO SCH (21:42)
[2021-09-03 02:40] LABS: Basophils % 0.4 %; Eosinophils # 0.2 K/mcL (0.0-0.6); Eosinophils % 2.5 %; Hematocrit 25.2 % (37.5-50.1); Lymphocytes % 12.1 %; Mean Corpuscular HGB Conc 31.7 g/dL (31.6-35.5); Mean Corpuscular Hemoglobin 29.4 pg (28.0-33.3); Mean Corpuscular Volume 92.6 fL (83.0-100.0); Mean Platelet Volume 10.4 fL (9.4-12.4); Monocytes # 0.6 K/mcL (0.0-1.3); Neutrophils # 5.9 K/mcL (1.6-8.9); Nucleated Red Blood Cells 0.6 /100 WBC (0); Platelet Count 164 K/mcL (140-400); Red Blood Count 2.72 M/mcL (4.19-5.50); Red Cell Distribution Width 17.3 % (11.5-14.5)
[2021-09-03 02:53] LABS: Albumin/Globulin Ratio 1.2 (1.1-2.2); Bilirubin,Total 0.3 mg/dL (0.3-1.0); Calcium 8.2 mg/dL (8.6-10.3); Globulin 2.5 g/dL (2.4-3.5); Magnesium 1.7 mg/dL (1.6-2.6); Potassium 3.7 mEq/L (3.5-5.1); Total Protein 5.5 g/dL (6.4-8.9)
[2021-09-03] MEDS: Ipratropium/Albuterol Neb 3 ML IH SCH ×6 (04:01→23:48)
[2021-09-03] MEDS: Insulin LISPRO 300 UNITS/3 ML VIAL SUBQ SCH ×4 (07:09→20:09)
[2021-09-03] MEDS: Budesonide/Formoterol 80/4.5 1 PUFF INH IH SCH (07:33)
[2021-09-03] MEDS: Furosemide 40 MG TABLET PO SCH (08:36)
[2021-09-03] MEDS: carvediloL 6.25 MG TABLET PO SCH ×2 (08:36→16:58)
[2021-09-03] MEDS: Sennosides/Docusate Sodium TABLET PO SCH (08:36)
[2021-09-03] MEDS: Isosorbide MONOnitrate (24 HR) 60 MG TAB.ER.24H PO SCH (08:36)
[2021-09-03] MEDS: Finasteride 5 MG TABLET PO SCH (08:36)
[2021-09-03] MEDS: Aspirin Enteric Coated 81 MG Tablet PO SCH (08:36)
[2021-09-03] MEDS: metroNIDAZOLE 500 MG TABLET PO SCH ×3 (08:36→20:08)
[2021-09-03] MEDS: D5% in Water 1,000 ML IVC SCH ×2 (08:46→20:07)
[2021-09-03] MEDS ORDERED: Acetaminophen 325 MG TABLET PO PRN (12:50)
[2021-09-03 14:20] LABS: Calcium 8.2 mg/dL (8.6-10.3); Potassium 3.6 mEq/L (3.5-5.1)
[2021-09-03] MEDS: NIFEdipine XL (24 HR) 30 MG TAB.ER.24 PO SCH (14:40)
[2021-09-03] MEDS: Fluticasone Propionate Nasal 50 MCG/SPRAY BOTTLE NS SCH (14:47)
[2021-09-03] MEDS: Mirtazapine 15 MG TABLET PO SCH (20:07)
[2021-09-03] MEDS: QUEtiapine Fumarate 25 MG TABLET PO SCH (20:07)
[2021-09-04 02:15] LABS: Basophils % 0.4 %; Eosinophils # 0.2 K/mcL (0.0-0.6); Hematocrit 24.4 % (37.5-50.1); Hemoglobin 7.7 g/dL (12.9-16.9); Immature Granulocytes % 2.4 % (0-4); Lymphocytes # 1.2 K/mcL (0.6-4.6); Lymphocytes % 15.9 %; Mean Corpuscular HGB Conc 31.6 g/dL (31.6-35.5); Mean Corpuscular Hemoglobin 29.4 pg (28.0-33.3); Mean Corpuscular Volume 93.1 fL (83.0-100.0); Mean Platelet Volume 10.8 fL (9.4-12.4); Monocytes # 0.6 K/mcL (0.0-1.3); Neutrophils # 5.4 K/mcL (1.6-8.9); Nucleated Red Blood Cells 0.3 /100 WBC (0); Platelet Count 160 K/mcL (140-400); Red Blood Count 2.62 M/mcL (4.19-5.50); Red Cell Distribution Width 17.2 % (11.5-14.5); Segmented Neutrophils % 70.3 %; White Blood Count 7.6 K/mcL (4.3-11.1)
[2021-09-04 02:25] LABS: Calcium 7.9 mg/dL (8.6-10.3); Magnesium 1.6 mg/dL (1.6-2.6); Potassium 3.4 mEq/L (3.5-5.1)
[2021-09-04 02:38] LABS: Thyroid Stimulating Hormone 3.054 mcIU/mL (0.340-5.600)
[2021-09-04] MEDS: Ipratropium/Albuterol Neb 3 ML IH SCH ×4 (03:39→15:20)
[2021-09-04] MEDS: D5% in Water 1,000 ML IVC SCH ×2 (05:29→15:39)
[2021-09-04] MEDS ORDERED: Potassium Chloride Elixir 20 MEQ/15 ML UDC PO ONE (07:30)
[2021-09-04] MEDS: Insulin LISPRO 300 UNITS/3 ML VIAL SUBQ SCH ×3 (08:04→16:15)
[2021-09-04] MEDS: metroNIDAZOLE 500 MG TABLET PO SCH ×2 (08:42→15:54)
[2021-09-04] MEDS: Finasteride 5 MG TABLET PO SCH (08:42)
[2021-09-04] MEDS: Isosorbide MONOnitrate (24 HR) 60 MG TAB.ER.24H PO SCH (08:42)
[2021-09-04] MEDS: Aspirin Enteric Coated 81 MG Tablet PO SCH (08:42)
[2021-09-04] MEDS: carvediloL 6.25 MG TABLET PO SCH ×2 (08:42→15:54)
[2021-09-04] MEDS: Furosemide 40 MG TABLET PO SCH (08:42)
[2021-09-04] MEDS: NIFEdipine XL (24 HR) 30 MG TAB.ER.24 PO SCH (08:43)
[2021-09-04] MEDS: Fluticasone Propionate Nasal 50 MCG/SPRAY BOTTLE NS SCH (08:43)
[2021-09-04 13:57] LABS: Adenovirus Not Detected (Not Detect); Bordetella Pertussis Not Detected (Not Detect); Chlamydophila pneumoniae Not Detected (Not Detect); Coronavirus 229E Not Detected (Not Detect); Coronavirus HKU1 Not Detected (Not Detect); Coronavirus NL63 Not Detected (Not Detect); Coronavirus OC43 Not Detected (Not Detect); Human Metapneumovirus Not Detected (Not Detect); Human Rhinovirus/Enterovirus Not Detected (Not Detect); Influenza A Subtype 2009 H1 Not Detected (Not Detect); Influenza B Not Detected (Not Detect); Mycoplasma pneumoniae Not Detected (Not Detect); Parainfluenza Virus 1 Not Detected (Not Detect); Parainfluenza Virus 2 Not Detected (Not Detect); Parainfluenza Virus 3 Not Detected (Not Detect); Parainfluenza Virus 4 Not Detected (Not Detect); Respiratory Syncytial Virus Not Detected (Not Detect); SARS-CoV-2 Not Detected (Not Detect)
[2021-09-04 15:44] VITALS: BP 109/64; PULSE 68; TEMP 98; O2SAT 93
== END 2021-09-04 18:31 | disposition home or self-care (01) | DRG 377 ==
LOC: 2NENU → SUATTDRO 09:06 → INTOOBSV 09:06 → OBSVTOIN 09:06 → SUATTDRO 08-31 12:10 → 2NNU 09-01 02:01 → 2ANU 09-01 21:19
PROVIDERS: ADMIT Internal Medicine; ATTEND Pharmacist

== ENCOUNTER 2021-09-27 22:09 | Inpatient (IN) ==
[2021-09-27 23:12] LABS: Basophils % 0.5 %; Eosinophils # 0.2 K/mcL (0.0-0.6); Eosinophils % 3.5 %; Hematocrit 30.2 % (37.5-50.1); Hemoglobin 9.2 g/dL (12.9-16.9); Immature Granulocytes % 0.3 % (0-4); Lymphocytes # 1.1 K/mcL (0.6-4.6); Lymphocytes % 17.3 %; Mean Corpuscular HGB Conc 30.5 g/dL (31.6-35.5); Mean Corpuscular Hemoglobin 29.3 pg (28.0-33.3); Mean Corpuscular Volume 96.2 fL (83.0-100.0); Mean Platelet Volume 11.4 fL (9.4-12.4); Monocytes # 0.5 K/mcL (0.0-1.3); Monocytes % 8.3 %; Neutrophils # 4.3 K/mcL (1.6-8.9); Platelet Count 143 K/mcL (140-400); Red Blood Count 3.14 M/mcL (4.19-5.50); Red Cell Distribution Width 14.8 % (11.5-14.5); Segmented Neutrophils % 70.1 %; White Blood Count 6.1 K/mcL (4.3-11.1)
[2021-09-27 23:17] LABS: INR 1.1; Prothrombin Time 12.8 Seconds (9.4-12.1)
[2021-09-27 23:19] LABS: Activated Partial Thrombo Time 34.2 Seconds (26.0-36.0)
[2021-09-27 23:40] LABS: Alanine Aminotransferase < 3 Units/L (7-52); Albumin 3.5 g/dL (3.5-5.7); Albumin/Globulin Ratio 1.4 (1.1-2.2); Alkaline Phosphatase 108 Units/L (34-104); Aspartate Amino Transferase 16 Units/L (13-39); BUN/Creatinine Ratio 9 (6-26); Bilirubin,Indirect 0.4 mg/dL (0.0-1.0); Bilirubin,Total 0.4 mg/dL (0.3-1.0); Blood Urea Nitrogen 66 mg/dL (8-23); Calcium 8.4 mg/dL (8.6-10.3); Carbon Dioxide 24 mEq/L (23-29); Chloride 109 mEq/L (98-107); Globulin 2.5 g/dL (2.4-3.5); Glucose 109 mg/dL (70-105); Osmolality,Calculated 316 (280-300); Potassium 3.9 mEq/L (3.5-5.1); Sodium 143 mEq/L (136-145); eGFR For African Americans 9 (> 60); eGFR For Non-African Americans 7 (> 60)
[2021-09-27 23:44] LABS: Troponin I 0.06 ng/mL (< 0.04)
[2021-09-27 23:47] LABS: Influenza A PCR Negative (Negative); Influenza B PCR Negative (Negative); Resp. Syncytial Virus PCR Negative (Negative)
[2021-09-27 23:48] LABS: SARS-CoV-2 by PCR (In House) Negative (Negative)
[2021-09-28] MEDS ORDERED: Furosemide 40 MG/4 ML VIAL IVP ONE ×2 (00:50→11:18)
[2021-09-28] MEDS ORDERED: Ipratropium/Albuterol Neb 3 ML IH ONE (00:59)
[2021-09-28] MEDS ORDERED: methylPREDNISolone 125 MG/2 ML VIAL IVP ONE (00:59)
[2021-09-28] MEDS ORDERED: Naloxone 0.4 MG/ML INJ IVP PRN (01:28)
[2021-09-28] MEDS ORDERED: Ipratropium/Albuterol Neb 3 ML IH PRN (02:29)
[2021-09-28 04:40] LABS: White Blood Count 6.1 K/mcL (4.3-11.1)
[2021-09-28 04:41] LABS: Basophils % 0.7 %; Eosinophils # 0.2 K/mcL (0.0-0.6); Eosinophils % 2.8 %; Hematocrit 27.7 % (37.5-50.1); Hemoglobin 8.7 g/dL (12.9-16.9); Immature Granulocytes % 0.5 % (0-4); Lymphocytes # 1.1 K/mcL (0.6-4.6); Lymphocytes % 17.4 %; Mean Corpuscular HGB Conc 31.4 g/dL (31.6-35.5); Mean Corpuscular Hemoglobin 30.4 pg (28.0-33.3); Mean Corpuscular Volume 96.9 fL (83.0-100.0); Mean Platelet Volume 11.5 fL (9.4-12.4); Monocytes # 0.4 K/mcL (0.0-1.3); Monocytes % 6.4 %; Neutrophils # 4.4 K/mcL (1.6-8.9); Platelet Count 141 K/mcL (140-400); Red Blood Count 2.86 M/mcL (4.19-5.50); Red Cell Distribution Width 14.8 % (11.5-14.5); Segmented Neutrophils % 72.2 %
[2021-09-28 04:58] LABS: Calcium 8.4 mg/dL (8.6-10.3)
[2021-09-28] MEDS ORDERED: Albumin 25% 25gram/100mL 25 GM/100 ML IV.SOLN IVPB ONE (11:19)
[2021-09-28] MEDS: Metoprolol XL (24 HR) Succ 25 MG TAB.ER.24H PO SCH (12:29)
[2021-09-28] MEDS: Aspirin Enteric Coated 81 MG Tablet PO SCH (12:29)
[2021-09-28] MEDS: *HR* Heparin 5,000 UNIT/ML VIAL SQ SCH ×2 (15:38→21:15)
[2021-09-29 04:15] LABS: Hepatitis B Surface Antibody < 3.10 mIU/mL
[2021-09-29 04:26] LABS: Hepatitis B Surface Antigen Nonreactive (Nonreactive)
[2021-09-29] MEDS: *HR* Heparin 5,000 UNIT/ML VIAL SQ SCH ×3 (05:28→21:20)
[2021-09-29 08:44] LABS: Basophils % 0.4 %; Hematocrit 29.1 % (37.5-50.1); Hemoglobin 8.9 g/dL (12.9-16.9); Immature Granulocytes % 0.7 % (0-4); Lymphocytes # 1.2 K/mcL (0.6-4.6); Lymphocytes % 15.3 %; Mean Corpuscular HGB Conc 30.6 g/dL (31.6-35.5); Mean Corpuscular Hemoglobin 29.5 pg (28.0-33.3); Mean Corpuscular Volume 96.4 fL (83.0-100.0); Monocytes # 0.6 K/mcL (0.0-1.3); Monocytes % 8.3 %; Neutrophils # 5.7 K/mcL (1.6-8.9); Platelet Count 162 K/mcL (140-400); Red Blood Count 3.02 M/mcL (4.19-5.50); Red Cell Distribution Width 14.6 % (11.5-14.5); Segmented Neutrophils % 75.3 %; White Blood Count 7.6 K/mcL (4.3-11.1)
[2021-09-29] MEDS ORDERED: Heparin 1,000 UNITS/500 mL 500 ML ONE (08:47)
[2021-09-29] MEDS ORDERED: 0.9 % Sodium Chloride 500 ML ONE (08:50)
[2021-09-29] MEDS ORDERED: Clindamycin 600 MG/50 ML 600 MG/50 ML IV.SOLN IVPB STA (08:56)
[2021-09-29] MEDS ORDERED: *HR* Midazolam HCl 2 MG/2 ML VIAL IVP ONE (08:56)
[2021-09-29] MEDS ORDERED: *HR* FentaNYL (PF) 100 MCG/2 ML VIAL IVP ONE (08:56)
[2021-09-29 09:03] LABS: Calcium 8.7 mg/dL (8.6-10.3); Potassium 4.1 mEq/L (3.5-5.1)
[2021-09-29] MEDS ORDERED: *HR* Heparin 5,000 UNIT/ML VIAL ONE (09:21)
[2021-09-29] MEDS ORDERED: *HR* Heparin 10,000 UNIT/10 ML VIAL IV PRN (10:04)
[2021-09-29] MEDS ORDERED: 0.9 % Sodium Chloride 250 ML IVC PRN (10:04)
[2021-09-29] MEDS ORDERED: 0.9 % Sodium Chloride 1,000 ML PRIME SCH (10:15)
[2021-09-29] MEDS: Aspirin Enteric Coated 81 MG Tablet PO SCH (15:34)
[2021-09-29] MEDS: Metoprolol XL (24 HR) Succ 25 MG TAB.ER.24H PO SCH (15:34)
[2021-09-30] MEDS: *HR* Heparin 5,000 UNIT/ML VIAL SQ SCH ×3 (04:45→20:08)
[2021-09-30 06:02] LABS: Basophils # 0.1 K/mcL (0.0-0.2); Basophils % 0.8 %; Eosinophils # 0.1 K/mcL (0.0-0.6); Hematocrit 28.1 % (37.5-50.1); Hemoglobin 8.5 g/dL (12.9-16.9); Immature Granulocytes % 0.6 % (0-4); Lymphocytes # 0.9 K/mcL (0.6-4.6); Lymphocytes % 14.3 %; Mean Corpuscular HGB Conc 30.2 g/dL (31.6-35.5); Mean Corpuscular Hemoglobin 29.1 pg (28.0-33.3); Mean Corpuscular Volume 96.2 fL (83.0-100.0); Mean Platelet Volume 11.3 fL (9.4-12.4); Monocytes # 0.6 K/mcL (0.0-1.3); Neutrophils # 4.7 K/mcL (1.6-8.9); Nucleated Red Blood Cells 0.3 /100 WBC (0); Platelet Count 136 K/mcL (140-400); Red Blood Count 2.92 M/mcL (4.19-5.50); Red Cell Distribution Width 14.7 % (11.5-14.5); Segmented Neutrophils % 74.3 %; White Blood Count 6.3 K/mcL (4.3-11.1)
[2021-09-30 06:30] LABS: Calcium 8.4 mg/dL (8.6-10.3); Potassium 4.2 mEq/L (3.5-5.1)
[2021-09-30] MEDS: Aspirin Enteric Coated 81 MG Tablet PO SCH (07:31)
[2021-09-30] MEDS: Metoprolol XL (24 HR) Succ 25 MG TAB.ER.24H PO SCH (07:31)
[2021-09-30] MEDS ORDERED: 0.9 % Sodium Chloride 250 ML IVC PRN (08:04)
[2021-09-30] MEDS ORDERED: *HR* Heparin 10,000 UNIT/10 ML VIAL IV PRN (08:04)
[2021-10-01 02:02] LABS: Basophils % 0.6 %; Eosinophils # 0.2 K/mcL (0.0-0.6); Eosinophils % 2.2 %; Hematocrit 28.5 % (37.5-50.1); Hemoglobin 8.8 g/dL (12.9-16.9); Immature Granulocytes % 0.4 % (0-4); Lymphocytes % 14.9 %; Mean Corpuscular HGB Conc 30.9 g/dL (31.6-35.5); Mean Corpuscular Hemoglobin 29.8 pg (28.0-33.3); Mean Corpuscular Volume 96.6 fL (83.0-100.0); Mean Platelet Volume 10.8 fL (9.4-12.4); Monocytes # 0.7 K/mcL (0.0-1.3); Monocytes % 10.7 %; Neutrophils # 4.8 K/mcL (1.6-8.9); Nucleated Red Blood Cells 0.4 /100 WBC (0); Platelet Count 114 K/mcL (140-400); Red Blood Count 2.95 M/mcL (4.19-5.50); Red Cell Distribution Width 14.3 % (11.5-14.5); Segmented Neutrophils % 71.2 %; White Blood Count 6.7 K/mcL (4.3-11.1)
[2021-10-01 02:20] LABS: Calcium 7.9 mg/dL (8.6-10.3); Potassium 3.7 mEq/L (3.5-5.1)
[2021-10-01] MEDS: *HR* Heparin 5,000 UNIT/ML VIAL SQ SCH ×3 (05:40→20:12)
[2021-10-01] MEDS ORDERED: 0.9 % Sodium Chloride 250 ML IVC PRN (07:31)
[2021-10-01] MEDS ORDERED: *HR* Heparin 10,000 UNIT/10 ML VIAL IV PRN (07:31)
[2021-10-01] MEDS: Aspirin Enteric Coated 81 MG Tablet PO SCH (08:13)
[2021-10-01] MEDS: Metoprolol XL (24 HR) Succ 25 MG TAB.ER.24H PO SCH (08:13)
[2021-10-01] MEDS: Finasteride 5 MG TABLET PO SCH (14:44)
[2021-10-01] MEDS: hydrALAZINE 25 MG TABLET PO SCH ×2 (14:44→20:04)
[2021-10-01] MEDS: Isosorbide MONOnitrate (24 HR) 60 MG TAB.ER.24H PO SCH (14:44)
[2021-10-01] MEDS: QUEtiapine Fumarate 25 MG TABLET PO SCH (20:04)
[2021-10-01] MEDS: Mirtazapine 15 MG TABLET PO SCH (20:04)
[2021-10-02 02:12] LABS: Basophils % 0.3 %; Eosinophils # 0.3 K/mcL (0.0-0.6); Eosinophils % 3.3 %; Hematocrit 27.3 % (37.5-50.1); Hemoglobin 8.3 g/dL (12.9-16.9); Immature Granulocytes % 0.7 % (0-4); Lymphocytes # 1.1 K/mcL (0.6-4.6); Lymphocytes % 14.3 %; Mean Corpuscular HGB Conc 30.4 g/dL (31.6-35.5); Mean Corpuscular Hemoglobin 29.4 pg (28.0-33.3); Mean Corpuscular Volume 96.8 fL (83.0-100.0); Mean Platelet Volume 11.4 fL (9.4-12.4); Monocytes # 0.6 K/mcL (0.0-1.3); Monocytes % 7.9 %; Neutrophils # 5.6 K/mcL (1.6-8.9); Nucleated Red Blood Cells 0.3 /100 WBC (0); Platelet Count 112 K/mcL (140-400); Red Blood Count 2.82 M/mcL (4.19-5.50); Red Cell Distribution Width 14.2 % (11.5-14.5); Segmented Neutrophils % 73.5 %; White Blood Count 7.6 K/mcL (4.3-11.1)
[2021-10-02 02:27] LABS: Calcium 7.7 mg/dL (8.6-10.3); Potassium 3.6 mEq/L (3.5-5.1)
[2021-10-02] MEDS: *HR* Heparin 5,000 UNIT/ML VIAL SQ SCH ×3 (05:27→19:38)
[2021-10-02] MEDS: hydrALAZINE 25 MG TABLET PO SCH ×3 (09:30→19:38)
[2021-10-02] MEDS: Metoprolol XL (24 HR) Succ 25 MG TAB.ER.24H PO SCH (09:31)
[2021-10-02] MEDS: Aspirin Enteric Coated 81 MG Tablet PO SCH (09:31)
[2021-10-02] MEDS: Isosorbide MONOnitrate (24 HR) 60 MG TAB.ER.24H PO SCH (09:31)
[2021-10-02] MEDS: Finasteride 5 MG TABLET PO SCH (09:31)
[2021-10-02] MEDS ORDERED: 0.9 % Sodium Chloride 250 ML IVC PRN (09:35)
[2021-10-02] MEDS ORDERED: *HR* Heparin 10,000 UNIT/10 ML VIAL IV PRN (09:35)
[2021-10-02] MEDS ORDERED: Sennosides/Docusate Sodium TABLET PO PRN (19:04)
[2021-10-02] MEDS: Mirtazapine 15 MG TABLET PO SCH (19:38)
[2021-10-02] MEDS: QUEtiapine Fumarate 25 MG TABLET PO SCH (19:39)
[2021-10-03] MEDS: *HR* Heparin 5,000 UNIT/ML VIAL SQ SCH ×3 (05:17→20:22)
[2021-10-03] MEDS: Finasteride 5 MG TABLET PO SCH (08:35)
[2021-10-03] MEDS: Metoprolol XL (24 HR) Succ 25 MG TAB.ER.24H PO SCH (08:35)
[2021-10-03] MEDS: hydrALAZINE 25 MG TABLET PO SCH ×3 (08:35→20:21)
[2021-10-03] MEDS: Isosorbide MONOnitrate (24 HR) 60 MG TAB.ER.24H PO SCH (08:35)
[2021-10-03] MEDS: Aspirin Enteric Coated 81 MG Tablet PO SCH (08:35)
[2021-10-03] MEDS: Mirtazapine 15 MG TABLET PO SCH (20:21)
[2021-10-03] MEDS: QUEtiapine Fumarate 25 MG TABLET PO SCH (20:22)
[2021-10-04 05:50] LABS: Calcium 8.3 mg/dL (8.6-10.3); Potassium 3.9 mEq/L (3.5-5.1)
[2021-10-04] MEDS: *HR* Heparin 5,000 UNIT/ML VIAL SQ SCH ×3 (06:18→21:25)
[2021-10-04] MEDS: Metoprolol XL (24 HR) Succ 25 MG TAB.ER.24H PO SCH (08:40)
[2021-10-04] MEDS: hydrALAZINE 25 MG TABLET PO SCH ×3 (08:40→21:25)
[2021-10-04] MEDS: Finasteride 5 MG TABLET PO SCH (08:40)
[2021-10-04] MEDS: Isosorbide MONOnitrate (24 HR) 60 MG TAB.ER.24H PO SCH (08:40)
[2021-10-04] MEDS: Aspirin Enteric Coated 81 MG Tablet PO SCH (08:40)
[2021-10-04] MEDS: QUEtiapine Fumarate 25 MG TABLET PO SCH (21:25)
[2021-10-04] MEDS: Mirtazapine 15 MG TABLET PO SCH (21:25)
[2021-10-05 02:24] LABS: Calcium 8.3 mg/dL (8.6-10.3); Potassium 3.7 mEq/L (3.5-5.1)
[2021-10-05] MEDS: *HR* Heparin 5,000 UNIT/ML VIAL SQ SCH ×2 (05:42→14:44)
[2021-10-05] MEDS: Isosorbide MONOnitrate (24 HR) 60 MG TAB.ER.24H PO SCH (08:06)
[2021-10-05] MEDS: hydrALAZINE 25 MG TABLET PO SCH ×2 (08:06→14:39)
[2021-10-05] MEDS: Aspirin Enteric Coated 81 MG Tablet PO SCH (08:06)
[2021-10-05] MEDS: Finasteride 5 MG TABLET PO SCH (08:07)
[2021-10-05] MEDS: Metoprolol XL (24 HR) Succ 25 MG TAB.ER.24H PO SCH (08:07)
[2021-10-05] MEDS ORDERED: *HR* Heparin 10,000 UNIT/10 ML VIAL IV PRN (08:11)
[2021-10-05] MEDS ORDERED: 0.9 % Sodium Chloride 250 ML IVC PRN (08:11)
[2021-10-05 15:06] LABS: Influenza A PCR Negative (Negative); Influenza B PCR Negative (Negative); Resp. Syncytial Virus PCR Negative (Negative)
[2021-10-05 15:09] LABS: SARS-CoV-2 by PCR (In House) Negative (Negative)
[2021-10-05 15:25] VITALS: BP 97/47; PULSE 59; TEMP 97.7; O2SAT 99
== END 2021-10-05 18:30 | DRG 291 ==
LOC: EMEROOARM 22:09 → 2ANU 22:09 → SUATTDRO 09-29 19:00
PROVIDERS: ADMIT Family Medicine; ATTEND Student in an Organized Health Care Education/Training Program